=== PATIENT | female | born 1945 | race Caucasian/White ===

== ENCOUNTER 2019-05-09 13:05 | Outpatient (REF) | payer MEDICARE, SELFPAY ==
[2019-05-09 21:58] LABS: ALT 19 U/L (12-78); AST 28 U/L (15-37); Albumin 3.7 g/dL (3.4-5.0); Alkaline Phosphatase 84 U/L (46-116); Anion Gap 8.4 mmol/L (3-11); BUN 34 mg/dL (7-18); Bilirubin, Total 0.9 mg/dL (0.2-1.0); CO2 28.6 mmol/L (21.0-32.0); CREATININE 1.78 mg/dL (0.55-1.02); Calcium 9.9 mg/dL (8.5-10.1); Calculated LDL 126; Chloride 106 mmol/L (98-107); Cholesterol 208 mg/dL (50-200); Estimated GFR 27.71 (mL/min/1.73m2); Glucose 91 mg/dL (70-100); HDL Cholesterol 67 mg/dL (40-60); Potassium 4.8 mmol/L (3.5-5.1); Sodium 143 mmol/L (136-145); TSH (W/Ref FT4) 0.04 uIU/mL (0.358-3.74); Total Protein 7.3 g/dL (6.4-8.2); Triglyceride 75 mg/dL (30-150)
[2019-05-09 22:19] LABS: FREE T4 1.45 ng/dL (0.76-1.46)
[2019-05-13 10:56] LABS: CA 125 10 U/mL (0-30)
== END 2019-05-09 13:25 ==
LOC: NCHCN 13:05
PROVIDERS: PCP Nurse Practitioner Family; Visit Provider Family Medicine
DX: C54.1 Malignant neoplasm of endometrium (principal); E03.9 Hypothyroidism, unspecified; E78.00 Pure hypercholesterolemia, unspecified
CPT/HCPCS: 80053; 80061; 83721; 86304; 84439; 84443

== ENCOUNTER 2019-07-20 12:07 | Emergency (ER) | payer MEDICARE, MEDICAID, SELFPAY ==
[2019-07-20] VITALS (24 sets, daily range): BP systolic 114–158; BP diastolic 57–81; PULSE 52–84; RESP 12–23; O2SAT 97–100
[2019-07-20 12:56] LABS: Abs Immature Grans 0.01 k/cumm (0.0-0.09); Absolute Basophil Count 0.04 k/cumm (0.0-0.2); Absolute Eosinophil Count 0.11 k/cumm (0.0-0.7); Absolute Lymphocyte Count 1.34 k/cumm (1.2-3.4); Absolute Monocyte Count 0.41 k/cumm (0.11-0.7); Absolute Neutrophil Count 5.48 k/cumm (1.2-6.7); Basophils % 0.5; Eosinophils % 1.5; HCT 32.1 % (36.0-46.0); HGB 10.4 g/dL (12.0-15.5); Immature Grans % 0.1; Lymphocytes % 18.1; Mean Corp. HGB Concentration 32.4 g/dL (32.0-36.0); Mean Corpuscular Hemoglobin 30.8 pg (27.0-33.0); Mean Platelet Volume 9.6 fL (8.0-11.0); Monocytes % 5.5; Neutrophils % 74.3; Platelet Count 269 x1000/uL (130-400); RBC 3.38 m/cumm (4.00-5.20); RBC Distribution Width 11.6 % (11.7-14.6); White Blood Cell Count 7.39 k/cumm (4.4-10.8)
[2019-07-20] MEDS: Normal Saline 500 ML 1000 ML IV (13:01)
--- NOTE | 2019-07-20 13:01 | NUR.NOTE ---
iv placed 20 in rac labs drawn ivf infusing Nursing Note:
--- NOTE | 2019-07-20 13:10 | DI.RAD_ITS ---
SYMPTOMS/DIAGNOSIS: SYNCOPE PA AND LATERAL CHEST: There are no prior comparison exams. The heart size is normal. The lungs show mild fibrotic changes. There is a question of increased densities adjacent to the right heart border, which could represent atelectasis versus infiltrate. No effusions are seen. Degenerative changes are noted in the spine. IMPRESSION: Question of right middle lobe infiltrate versus atelectasis.
[2019-07-20 13:12] LABS: ALT 17 U/L (14-59); AST 17 U/L (15-37); Albumin 3.6 g/dL (3.4-5.0); Alkaline Phosphatase 80 U/L (46-116); Anion Gap 8.5 mmol/L (3-11); BUN 31 mg/dL (7-18); CO2 27.5 mmol/L (21.0-32.0); CREATININE 2.08 mg/dL (0.55-1.02); Calcium 9.6 mg/dL (8.5-10.1); Chloride 106 mmol/L (98-107); Estimated GFR 23.15 (mL/min/1.73m2); Glucose 119 mg/dL (70-100); Magnesium 1.7 mg/dL (1.8-2.4); Potassium 4.1 mmol/L (3.5-5.1); Sodium 142 mmol/L (136-145); Total Protein 7.9 g/dL (6.4-8.2)
[2019-07-20 13:13] LABS: Troponin I < 0.05 ng/mL (0.00-0.06)
[2019-07-20 13:38] LABS: D-Dimer 1329 ng/mlFEU (<500)
--- NOTE | 2019-07-20 14:03 | DI.VRAD_ITS ---
EXAM: XR Chest, 2 Views EXAM DATE/TIME: 07/20/2019 12:50 PM CLINICAL HISTORY: 74 years old, female; Other: Syncope TECHNIQUE: Imaging protocol: XR of the chest, 2 views. COMPARISON: No relevant prior studies available. FINDINGS: Lungs: Hyperaerated lungs consistent with mild to moderate COPD . Mild right medial basilar bronchopneumonia or atelectasis. Pleural space: Unremarkable. No pleural effusion. No pneumothorax. Heart/Mediastinum: Unremarkable. No cardiomegaly. Bones/joints: Mild thoracic spondylosis. IMPRESSION: 1. Hyperaerated lungs consistent with mild to moderate COPD . 2. Mild right medial basilar bronchopneumonia or atelectasis. Dictated and Authenticated by: Denton Pérez MD. Ordering:PHIL Barnes MD
--- NOTE | 2019-07-20 14:18 | ED.GENADUL_ITS ---
Discharge Plan Disposition Patient Disposition: AGAINST MEDICAL ADVICE Discharge Details Chief Complaint: AMS/LOC Clinical Impression: Bronchopneumonia, Syncope, D-dimer, elevated, Creatinine elevation Primary Care Provider: Palak Casas ED Provider: Cameron Werner Home Meds and New Rx's Prescriptions: New doxycycline hyclate 100 mg tablet 100 mg PO BID Qty: 13 RF: 0 Continued levothyroxine [Synthroid] 25 MCG tablet 25 mcg PO DAILY RF: 0 lisinopril 10 MG tablet 10 mg PO DAILY RF: 0 Discharge Instructions Instructions: Dehydration (ED), Syncope (ED), Against Medical Advice (ED), Pneumonia (ED) Additional Instructions: Please drink plenty of water to stay hydrated. Take antibiotic as prescribed. Please contact your primary care physician to arrange follow-up. Call to arrange timely follow-up next week. You are leaving AGAINST MEDICAL ADVICE. Return to the ER at any time for further diagnostic work-up and treatment as recommended. Referrals: Palak Casas [Primary Care Provider] - Medical Decision Making 74-year-old female presents with syncope. Has been coughing for few months. Saturating well no respiratory distress and hemodynamically stable. ECG was reviewed and interpreted by me: Sinus rhythm 62 bpm, normal axis, PACs noted. Screening labs were sent. Results reviewed. Patient is mildly anemic with hemoglobin of 10.4. Creatinine is elevated at 2.08 and this is an increase from prior. Estimated GFR is 23. Patient has mildly low magnesium of 1.7. D-dimer is elevated at 1329. Chest x-ray was reviewed and interpreted by radiology: IMPRESSION: 1. Hyperaerated lungs consistent with mild to moderate COPD . 2. Mild right medial basilar bronchopneumonia or atelectasis. Patient was administered IV fluid bolus 500 mL. All results were discussed with the patient. Plan to admit given syncope, pneumonia, JAYA. I had a discussion with the patient and family about my diagnostic/treatment plan. She declines plan and wishes to leave against medical advise. I reiterated my concerns to the patient and explained the risks of leaving prior to completion of workup and treatment. I specifically emphasized the possibility of life-threatening or lifestyle modifying disease that would not be appropriately treated if they leave. Patient verbalized understanding of my concerns and the potential for life threatening or lifestyle modifying disease. Patient has capacity to make informed decision. I again explained my concerns and urged the patient to stay for treatment as outlined. Patient continued to refuse. I then discussed potential less ideal alternatives to diagnostic/treatment plan as outlines and patient refused. I recommended that the patient follow-up with primary care physician EMERITA or return to the Emergency Department at any time for further treatment. Lab Data Lab results reviewed: Yes I reviewed the patient's lab results. HPI General Mode of arrival: ambulatory . Date/Time Provider Initiated Documentation: 07/20/19 12:28 . Limitations to Documentation: no limitations . Information obtained by: patient . HPI Narrative: 74-year-old female with history of hypertension, hypothyroidism, here at the prompting of her family after syncopal episode that occurred at jehovah's witness function. This occurred just prior to arrival today. EMS were called and patient refused EMS transport. History limited secondary to altered mental status during the episode. Patient notes she was feeling well this morning and suddenly during jehovah's witness function slumped over. Bystanders note her eyes remained open but she was unresponsive for a couple minutes. Patient then spontaneously improved. Patient denies any symptoms at this time and desires discharge. Related Data Home Medications Medication Instructions Recorded Confirmed levothyroxine [Synthroid] 25 mcg PO DAILY 11/29/15 07/20/19 lisinopril 10 mg PO DAILY 10/04/17 07/20/19 doxycycline hyclate 100 mg PO BID #13 tab 07/20/19 Previous Rx's Medication Instructions Recorded doxycycline hyclate 100 mg PO BID #13 tab 07/20/19 Allergies Allergy/AdvReac Type Severity Reaction Status Date / Time Penicillins Allergy Unverified 11/03/17 10:08 General Stated Complaint: AMS/LOC PAMELA: 3 Review of Systems Review of Systems All systems reviewed & are unremarkable except as noted in HPI and below Constitutional Denies fever(s) ENT Denies nasal congestion and Reports other (Rhinorrhea times months) Cardiovascular Denies chest pain, Reports syncope and Denies dyspnea Respiratory Reports cough and Denies dyspnea Neurologic Reports syncope PFSH Medical History HTN (hypertension) Hypothyroidism (acquired) Incontinence Neoplasm of endometrium Surgical History Colonoscopy - MAC (10/09/17) Vaginal hysterectomy Social History Smoking/Tobacco Use Status: Never Drug use: Never Do you feel safe at home: Yes Do you feel safe in your relationship?: Yes Exam Const General: cooperative and no acute distress [facility] Head: normocephalic Eyes Conjunctivae: normal conjunctivae Sclera: normal sclerae EOM: EOM intact bilaterally Neck Neck: trachea midline and supple Resp Auscultation: clear to auscultation bilaterally, no rales, no rhonchi and no wheezes Cardio Jugular venous pressure: no JVD Rate: regular rate and not tachycardic Rhythm: regular rhythm GI Palpation: soft, not firm, no guarding, no masses, not rigid and nontender Skin General skin exam: no rashes or lesions noted Neuro General: alert, awake, oriented x3 and tone normal Cognition: normal cognition Motor: muscle tone normal throughout and strength 5/5 throughout Sensory Exam: no sensory deficits noted Extrem General: no edema Psych Appearance: grossly normal Mental Status: mental status grossly normal Speech and Movement: speech and movement normal Course Vital Signs Pulse 74 07/20/19 12:15 Respiratory Rate 16 07/20/19 12:15 Blood Pressure 139/74 07/20/19 12:15 Pulse Oximetry 99 07/20/19 12:15 Pulse 74 07/20/19 12:15 Respiratory Rate 20 07/20/19 12:20 Respiratory Effort Non-Labored 07/20/19 12:20 Respiratory Depth Normal 07/20/19 12:20 Respiratory Pattern Normal 07/20/19 12:20 Blood Pressure 139/74 07/20/19 12:15 Blood Pressure Position Sitting 07/20/19 12:15 Pulse Oximetry 99 07/20/19 12:15 Oxygen Delivery Method Room Air 07/20/19 12:15 Oxygen Flow Rate 0 07/20/19 12:15 Lab/Test Results Lab/Test Results: Laboratory Tests Range/Units 07/20/19 07/20/19 07/20/19 12:50 12:50 12:50 WBC (4.4-10.8) k/cumm 7.39 RBC (4.00-5.20) m/cumm 3.38 L Hgb (12.0-15.5) g/dL 10.4 L Hct (36.0-46.0) % 32.1 L MCV (80-95) fL 95.0 MCH (27.0-33.0) pg 30.8 MCHC (32.0-36.0) g/dL 32.4 RDW (11.7-14.6) % 11.6 L Plt Count (130-400) x1000/uL 269 MPV (8.0-11.0) fL 9.6 Immature Gran % 0.1 Neutrophils % 74.3 Lymphocytes % 18.1 Monocytes % 5.5 Eosinophils % 1.5 Basophils % 0.5 Absolute Neutrophils (1.2-6.7) k/cumm 5.48 Absolute Lymphocytes (1.2-3.4) k/cumm 1.34 Absolute Monocytes (0.11-0.7) k/cumm 0.41 Absolute Eosinophils (0.0-0.7) k/cumm 0.11 Absolute Basophils (0.0-0.2) k/cumm 0.04 D-Dimer (<500) ng/mlFEU 1329 H Sodium (136-145) mmol/L 142 Potassium (3.5-5.1) mmol/L 4.1 Chloride (98-107) mmol/L 106 Carbon Dioxide (21.0-32.0) mmol/L 27.5 Anion Gap (3-11) mmol/L 8.5 BUN (7-18) mg/dL 31 H Creatinine (0.55-1.02) mg/dL 2.08 H Estimated GFR/1.73 m2 (mL/min/1.73m2) 23.15 Glucose (70-100) mg/dL 119 H Calcium (8.5-10.1) mg/dL 9.6 Magnesium (1.8-2.4) mg/dL 1.7 L Total Bilirubin (0.2-1.0) mg/dL 1.0 AST (15-37) U/L 17 ALT (14-59) U/L 17 Alkaline Phosphatase (46-116) U/L 80 Troponin I (0.00-0.06) ng/mL < 0.05 Total Protein (6.4-8.2) g/dL 7.9 Albumin (3.4-5.0) g/dL 3.6
[2019-07-20] MEDS: Doxycycline Hyclate 100 MG CAP PO (14:30)
== END 2019-07-20 14:43 | disposition left against medical advice (07) ==
PROVIDERS: Emergency Provider Student in an Organized Health Care Education/Training Program; PCP Nurse Practitioner Family
DX: R55 Syncope and collapse (principal); J18.0 Bronchopneumonia, unspecified organism; R79.1 Abnormal coagulation profile; R94.4 Abnormal results of kidney function studies; D64.9 Anemia, unspecified; I10 Essential (primary) hypertension; E83.42 Hypomagnesemia; Z53.29 Procedure and treatment not carried out because of patient's decision for other reasons
CPT/HCPCS: 80053; 93005; 96360; 99285; 71046; 83735; 84484; 85025; 85379; 93010

== ENCOUNTER 2020-01-19 09:39 | Emergency (ER) | payer MEDICARE, MEDICAID, SELFPAY ==
[2020-01-19 09:53] VITALS: BP 150/60; PULSE 60; RESP 18; O2SAT 98
--- NOTE | 2020-01-19 10:35 | DI.RAD_ITS ---
EXAM: XR HIP RT COMPLETE AP PELVIS INDICATION: Fall, pain, question inferior pubic rami fracture. TECHNIQUE: 2D digital imaging was performed. FINDINGS: A right hip prosthesis is again noted. There is no evidence of fracture or dislocation. Degenerativ e changes are prominent at the sacroiliac joints. Vascular calcifications are seen. IMPRESSION: No acute abnormality. DATA REPOSITORY: RADIATION DOSE DELIVERED:
--- NOTE | 2020-01-19 11:01 | ED.GENADUL_ITS ---
Discharge Plan Disposition Patient Disposition: HOME Condition: Stable Discharge Details Chief Complaint: Orthopedic Clinical Impression: Hip pain Primary Care Provider: Palak Casas ED Provider: Ronald Jacobson Home Meds and New Rx's Prescriptions: Continued levothyroxine [Synthroid] 25 MCG tablet 25 mcg PO DAILY RF: 0 lisinopril 10 MG tablet 10 mg PO DAILY RF: 0 Discharge Instructions Instructions: Hip Pain (ED) Additional Instructions: X-ray does not reveal any fracture and you are able to ambulate steadily without pain using your walker. I recommend using a walker at home and not using the cane. Please watch for new or worsening symptoms and return to the ER for any concerns. Gentle stretching as tolerated. Cool and/or warm compresses every 2 hours for 20 minutes. I recommend reaching out to your primary care provider tomorrow for outpatient reevaluation and to discuss physical therapy if symptoms persist Medical Decision Making 74-year-old female with a history of hypertension and thyroid disease presents having fallen on the or of last month injuring her right hip. She has been ambulatory using her cane but because the pain is not improving she is concerned she may have injured her previous surgery. She has full range of motion, there is no bony point tenderness, shortening or rotation. When she lies on her left side and attempts to abduct her legs she has increased pain. Given the injury is at least 10 days old, she is weightbearing, no deformity, no point tenderness, low suspicion for acute bony abnormality. She reports that she did strike her head but there was no loss of consciousness, she is neurologically intact now, no clear indication for CT imaging of her head 10 days after the injury. Will obtain x-ray of her right hip and pelvis and reassess. X-ray unremarkable. Discussed findings with patient and family. We discussed her safety at home and other options. She was trial ambulated using a walker throughout the ER, able to ambulate steadily without any pain. Patient is relieved that there is no fracture. Given she is weightbearing without difficulty, no clear indication to now CT her pelvis and hip. Family and patient both feel as though she is safe to go home at her current status. She does have a walker at home for both upstairs and downstairs that she will begin using, she will stop using the cane. Medical Records Medical records reviewed: Yes I reviewed the patient's medical records. Imaging Data Radiologic Study: Imaging: X-Ray (Right hip and pelvis x-ray read by virtual radiology as negative) HPI General Mode of arrival: ambulatory . Date/Time Provider Initiated Documentation: 01/19/20 09:45 . Limitations to Documentation: no limitations . Information obtained by: patient and family . HPI Narrative: This is a 74-year-old female who presents with her son for evaluation of right hip pain. She does have a past medical history of thyroid disease and hypertension. She reports that she fell in the kitchen either on the or of last month. She cannot give me the exact details of how or why she fell, however she knows that she had not eaten yet, denies loss of consciousness, and assumes that she simply slipped. She states that she fell onto her right side, she did hit her head, but again no LOC. She denies any headache, neck pain, visual changes, upper extremity discomfort, trunk discomfort, chest pain, shortness of breath, abdominal pain, problems with bowel or bladder function. She reports that she is able to bear weight but with certain types of movements she has right groin- hip discomfort. She reports this pain feels differently than when she broke her hip requiring a hip replacement. Denies any numbness, tingling, weakness in that extremity. She does live at home alone, has multiple levels in her home, and typically uses a cane for ambulation although she does have 2 walkers at home that she chooses not to use. She reports that the pain is simply not improving, she is concerned about her previous hip replacement, so she came to the ER for further evaluation. Related Data Home Medications Medication Instructions Recorded Confirmed levothyroxine [Synthroid] 25 mcg PO DAILY 11/29/15 01/19/20 lisinopril 10 mg PO DAILY 10/04/17 01/19/20 Allergies Allergy/AdvReac Type Severity Reaction Status Date / Time Penicillins Allergy Unverified 11/03/17 10:08 General Stated Complaint: Orthopedic PAMELA: 3 Review of Systems Constitutional Constitutional: Denies fever(s) and Denies headache(s) Eyes Eyes: Denies change in vision ENT Ears, Nose, Mouth, and Throat: Denies headache(s) Cardiovascular Cardiovascular: Denies chest pain and Denies dyspnea Respiratory Respiratory: Denies dyspnea Gastrointestinal Gastrointestinal: Denies abdominal pain, Denies nausea and Denies vomiting Genitourinary Genitourinary: Denies dysuria Musculoskeletal Musculoskeletal: Denies back pain and Denies tingling Integumentary/Breasts Skin/Breast: Denies rash Neurologic Neurologic: Denies headache(s) and Denies tingling PFSH Medical History HTN (hypertension) Hypothyroidism (acquired) Incontinence Neoplasm of endometrium Surgical History Colonoscopy - MAC (10/09/17) Vaginal hysterectomy Social History Smoking/Tobacco Use Status: Never Alcohol Intake: never Drug use: Never Substance use type: does not use Do you feel safe at home: Yes Do you feel safe in your relationship?: Yes Exam Const General: cooperative, healthy appearing, comfortable and no acute distress Orientation: alert and awake HENMT Head: normal to inspection, normocephalic and atraumatic Mouth: moist mucous membranes Eyes Conjunctivae: conjunctivae normal Neck Neck: normal visual inspection, full ROM, trachea midline and supple Resp Effort & Inspection: normal respiratory effort and able to speak in complete sentences Auscultation: clear to auscultation bilaterally Cardio Rate: regular rate Rhythm: regular rhythm GI Palpation: soft, no guarding, not rigid and nontender Back/Spine/Pelvis Cervical Spine: No cervical spinal tenderness Thoracic/Lumbar Spine: No thoracic spinal tenderness and No lumbar spinal tenderness Skin General skin exam: no rashes or lesions noted Neuro General: alert, awake, oriented x3, moves all extremities and no focal motor deficits Cranial Nerves: CN's II-XI intact bilaterally Gait: normal gait Motor: muscle tone normal throughout and strength 5/5 throughout Sensory Exam: no sensory deficits noted Extrem Right upper extremity: normal to inspection Left upper extremity: normal to inspection Right lower extremity: normal to inspection, full ROM, normal capillary refill and hip/thigh Details: normal to inspection, tenderness (There is mild right groin discomfort. Without erythema, ecchymosis or point tenderness), normal ROM, abnormal ROM and other (No shortening or rotation); no ecchymosis, no crepitus and no deformity; no cyanosis and no edema Left lower extremity: normal to inspection, full ROM and normal capillary refill; no cyanosis and no edema Psych Appearance: grossly normal Mental Status: mental status grossly normal Course Vital Signs Vital signs: Vital Signs Pulse 60 01/19/20 09:53 Respiratory Rate 18 01/19/20 09:53 Blood Pressure 150/60 H 01/19/20 09:53 Pulse Oximetry 98 01/19/20 09:53 Pulse 60 01/19/20 09:53 Respiratory Rate 18 01/19/20 09:53 Respiratory Effort Non-Labored 01/19/20 09:58 Blood Pressure 150/60 H 01/19/20 09:53 Blood Pressure Position Sitting 01/19/20 09:53 Pulse Oximetry 98 01/19/20 09:53 Oxygen Delivery Method Room Air 01/19/20 09:53 Oxygen Flow Rate 0 01/19/20 09:53 Pain Level 10 01/19/20 09:53
--- NOTE | 2020-01-19 11:17 | DI.VRAD_ITS ---
PROCEDURE INFORMATION: Exam: XR Right Hip with Pelvis when Performed Exam date and time: 01/19/2020 10:27 AM Age: 74 years old Clinical indication: Pain and injury or trauma; Fall; Initial encounter; Blunt trauma (contusions or hematomas); Hip pain; Right hip; Prior surgery TECHNIQUE: Imaging protocol: XR Right hip with pelvis when performed. Views: 2 or 3 views. COMPARISON: No relevant prior studies available. FINDINGS: Bones/joints: Right total hip replacement. There is no evidence of acute fracture.There is no evidence of malalignment or dislocation. Degenerative changes in the sacroiliac joints Soft tissues: Unremarkable. Vasculature: Phleboliths in the pelvis IMPRESSION: 1. Right total hip replacement. 2. There is no evidence of acute fracture.There is no evidence of malalignment or dislocation. Dictated and Authenticated by: Tim Stevens MD. Ordering:TOMAS Cardenas MD
[2020-01-19 11:41] VITALS: BP 150/60; PULSE 60; RESP 18; O2SAT 98
== END 2020-01-19 11:41 | disposition home or self-care (01) ==
PROVIDERS: Emergency Provider Physician Assistant; PCP Nurse Practitioner Family
DX: M25.551 Pain in right hip (principal); W19.XXXA Unspecified fall, initial encounter; I10 Essential (primary) hypertension
CPT/HCPCS: 99283; 73502

== ENCOUNTER 2020-05-12 12:39 | Outpatient (REF) | payer MEDICARE, MEDICAID, SELFPAY ==
[2020-05-12 20:53] LABS: Anion Gap 10.4 mmol/L (3-11); BUN 35 mg/dL (7-18); CO2 26.6 mmol/L (21.0-32.0); CREATININE 2.36 mg/dL (0.55-1.02); Calcium 9.5 mg/dL (8.5-10.1); Chloride 105 mmol/L (98-107); Estimated GFR 19.96 (mL/min/1.73m2); Glucose 106 mg/dL (74-106); Potassium 4.3 mmol/L (3.5-5.1); Sodium 142 mmol/L (136-145); TSH 0.01 uIU/mL (0.36-3.74); Vitamin B12 406 pg/mL (193-986)
== END 2020-05-12 12:59 ==
LOC: NCHCN 12:39
PROVIDERS: PCP Nurse Practitioner Family; Visit Provider Physician Assistant
DX: E03.9 Hypothyroidism, unspecified (principal); R41.3 Other amnesia
CPT/HCPCS: 80048; 82607; 84443

== ENCOUNTER 2020-10-27 08:26 | Emergency (ER) | payer MEDICARE, MEDICAID, SELFPAY ==
--- NOTE | 2020-10-27 08:30 | ED.GENADUL_ITS ---
Discharge Plan Disposition Patient Disposition: HOME Condition: Stable Discharge Details Clinical Impression: Left knee pain Primary Care Provider: Palak Casas ED Provider: Kathy Ruiz Home Meds and New Rx's Prescriptions: Continued levothyroxine [Synthroid] 25 MCG tablet 25 mcg PO DAILY RF: 0 lisinopril 10 MG tablet 10 mg PO DAILY RF: 0 Discharge Instructions Instructions: Osteoarthritis (ED), Knee Pain (ED) Additional Instructions: Your knee pain is most likely due to arthritis. You were given instructions for more information about arthritis. Take 500 mg of ibuprofen every 4 hours and if no relief, you can occasionally take 600 mg of ibuprofen every 4 hours as needed for pain. Alternate ice and heat to the affected area(s) several times daily for 20 minutes at a time. Follow-up with your primary care doctor in 1 week. Return to the emergency department with any worsening or new concerning symptoms. Discharge Data Discharge Physician: Kathy Ruiz Medical Decision Making 75-year-old female with a history of hypertension, hypothyroidism presents for left knee pain that occurs with weightbearing or flexion for the past 2 weeks. Patient appears nontoxic. She has reproducible left knee pain that occurs with weightbearing and full flexion. She has no pain in her left hip or ankle. There is no evidence of trauma, cellulitis or rash. She is neurovascularly intact. There is no ligamentous laxity. There is no left calf tenderness. Her right lower extremity has minimal nonpitting edema in relation to the left lower extremity but she has no right leg pain or injury. Suspect most likely arthritis. Patient was offered an x-ray but declined. As she has not been taking medication for pain, will give a dose of Tylenol here and she is advised to take Tylenol every 4 hours for pain. She is also advised on the risks of long-term ibuprofen but that she can take it occasionally if she does not have relief with Tylenol. She also was advised to alternate ice and heat. She is advised on moderate exercise to help with flexibility but not during this current acute episode. Advised to follow up with the primary care doctor for re-evaluation. Usual and customary return precautions given prior to discharge. Medical Records Medical records reviewed: Yes I reviewed the patient's medical records. HPI General Mode of arrival: ambulatory . Date/Time Provider Initiated Documentation: 10/27/20 08:30 . Limitations to Documentation: no limitations . Information obtained by: patient . HPI Narrative: Patient is a 75-year-old female with a history of hypertension, hypothyroidism who presents for left knee pain for the past 2 weeks. She states the pain only occurs with weightbearing and bending at her knee. She states she chronically uses a cane or a walker to help with balance issues while walking at home for the past several years. She took an aspirin recently but otherwise she has not taken any Tylenol or Motrin or any other pain medication for her symptoms. She denies any injury, fall, fever, leg swelling, calf pain, hip pain, ankle pain, swelling in her leg, recent travel, recent surgery. She denies any right leg pain. She states she thinks her symptoms are due to arthritis but she wanted to come here for further evaluation. Related Data Home Medications Medication Instructions Recorded Confirmed levothyroxine [Synthroid] 25 mcg PO DAILY 11/29/15 10/27/20 lisinopril 10 mg PO DAILY 10/04/17 10/27/20 Allergies Allergy/AdvReac Type Severity Reaction Status Date / Time Penicillins Allergy Unverified 11/03/17 10:08 General PAMELA: 3 Review of Systems All systems reviewed & are unremarkable except as noted in HPI and below Constitutional Constitutional: Reports as per HPI, Denies chills and Denies fever(s) Eyes Eyes: Denies blurry vision ENT Ears, Nose, Mouth, and Throat: Denies dizziness, Denies sore throat and Denies throat swelling Cardiovascular Cardiovascular: Denies chest pain and Denies dyspnea Respiratory Respiratory: Denies cough and Denies dyspnea Gastrointestinal Gastrointestinal: Denies abdominal pain, Denies diarrhea and Denies vomiting Genitourinary Genitourinary: Denies hematuria and Denies dysuria Musculoskeletal Musculoskeletal: Denies back pain, Denies numbness and Reports other (L knee pain) Integumentary/Breasts Skin/Breast: Denies lesions and Denies rash Neurologic Neurologic: Denies dizziness, Denies localized weakness and Denies numbness Allergic/Immunologic Allergic/Immunologic: Denies throat swelling [facility] Medical History (Updated 10/27/20 @ 09:31 by Kathy Ruiz DO) HTN (hypertension) Hypothyroidism (acquired) Incontinence Neoplasm of endometrium Surgical History Colonoscopy - MAC (10/09/17) Vaginal hysterectomy Social History Smoking/Tobacco Use Status: Never Smoking risk assessment performed?: Yes Alcohol Intake: never Drug use: Never Substance use type: does not use Do you feel safe at home: Yes Do you feel safe in your relationship?: Yes Exam Const General: cooperative, healthy appearing and no acute distress HENMT Head: normal to inspection Mouth: oral mucosae normal Eyes General: appearance normal, both eyes and all related structures Neck Neck: normal visual inspection Resp Effort & Inspection: normal respiratory effort and able to speak in complete sentences Cardio Rate: regular rate Skin General skin exam: no rashes or lesions noted Neuro General: patient alert, patient awake and patient oriented x3 Motor: muscle tone normal throughout Extrem Other: Left lower extremity: No tenderness to palpation of L hip/knee/leg/connor or foot. Pain in knee with weight bearing and full flexion. There is crepitus in knee with flexion. No pain with range of motion at hip or ankle. There is no edema, ecchymosis, erythema. No calf tenderness. Left DP and PT pulses intact. Right lower extremity: No pain with range of motion, erythema, ecchymosis. There is minimal nonpitting edema in right leg in comparison to left leg. There is no pain in right leg. Psych Appearance: grossly normal Affect: normal affect
[2020-10-27 08:56] VITALS: BP 146/63; PULSE 61; RESP 16; TEMP 36.6; O2SAT 99
[2020-10-27 09:35] VITALS: BP 133/62; PULSE 62; RESP 18; TEMP 37; O2SAT 99
[2020-10-27] MEDS: Acetaminophen 325 MG TAB 650 MG PO (09:35)
[2020-10-27 09:45] VITALS: TEMP 37
== END 2020-10-27 09:40 | disposition home or self-care (01) ==
PROVIDERS: Emergency Provider Physician Assistant; PCP Nurse Practitioner Family
DX: M25.562 Pain in left knee (principal); I10 Essential (primary) hypertension
CPT/HCPCS: 99282; 99283

== ENCOUNTER 2021-09-08 09:38 | Outpatient (REF) | payer MEDICARE, MEDICAID, SELFPAY ==
[2021-09-08 22:33] LABS: ALT 14 U/L (14-59); AST 15 U/L (15-37); Albumin 3.9 g/dL (3.4-5.0); Alkaline Phosphatase 105 U/L (46-116); Anion Gap 10.4 mmol/L (3-11); BUN 16 mg/dL (7-18); Bilirubin, Total 1.4 mg/dL (0.2-1.0); CO2 25.6 mmol/L (21.0-32.0); CREATININE 1.7 mg/dL (0.55-1.02); Calcium 9.9 mg/dL (8.5-10.1); Calculated LDL 130 mg/dL (<100); Chloride 105 mmol/L (98-107); Cholesterol 234 mg/dL (<200); Estimated GFR 29.07 (mL/min/1.73m2); Glucose 94 mg/dL (74-106); HDL Cholesterol 84 mg/dL (40-60); Potassium 4.2 mmol/L (3.5-5.1); Sodium 141 mmol/L (136-145); TSH (W/Ref FT4) 0.01 uIU/mL (0.36-3.74); Total Protein 7.8 g/dL (6.4-8.2); Triglyceride 103 mg/dL (<150)
[2021-09-08 22:50] LABS: FREE T4 1.86 ng/dL (0.76-1.46)
== END 2021-09-08 09:39 | disposition home or self-care (01) ==
LOC: NCHCN 09:38
PROVIDERS: PCP Nurse Practitioner Family; Visit Provider Family Medicine
DX: E78.00 Pure hypercholesterolemia, unspecified (principal); E03.9 Hypothyroidism, unspecified; I10 Essential (primary) hypertension; N18.9 Chronic kidney disease, unspecified; E66.3 Overweight
CPT/HCPCS: 80053; 80061; 84439; 84443

== ENCOUNTER 2022-06-17 19:40 | Outpatient (REF) | payer MEDICARE, MEDICAID, SELFPAY ==
[2022-06-17 16:07] LABS: HCT 37.6 % (36.0-46.0); MCH 29.7 pg (27.0-33.0); MCHC 31.9 % (32.0-36.0); MCV 93 fL (80-95); MPV 9.7 fL (8.0-11.0); Platelet Count 310 10^3/uL (130-400); RBC 4.04 10^6/uL (3.93-5.22); RDW 11.9 % (11.7-14.6); RDW-SD 41.3 fL; WBC 7.47 10^3/uL (4.4-10.8)
[2022-06-17 16:36] LABS: ALT 13 U/L (14-59); AST 15 U/L (15-37); Albumin 3.9 g/dL (3.4-5.0); Alkaline Phosphatase 87 U/L (46-116); Anion Gap 11.4 mmol/L (3-11); BUN 18 mg/dL (7-18); Bilirubin, Total 0.8 mg/dL (0.2-1.0); CO2 24.6 mmol/L (21.0-32.0); CREATININE 1.7 mg/dL (0.55-1.02); Calcium 9.5 mg/dL (8.5-10.1); Chloride 104 mmol/L (98-107); Estimated GFR 28.99 (mL/min/1.73m2); Glucose 93 mg/dL (74-106); Potassium 4.4 mmol/L (3.5-5.1); Sodium 140 mmol/L (136-145); TSH (W/Ref FT4) 0.02 uIU/mL (0.36-3.74); Total Protein 7.7 g/dL (6.4-8.2)
[2022-06-17 16:56] LABS: FREE T4 1.37 ng/dL (0.76-1.46)
== END 2022-06-17 19:41 | disposition home or self-care (01) ==
LOC: NCHCN 19:40
PROVIDERS: PCP Nurse Practitioner Family; Visit Provider Family Medicine
DX: E03.9 Hypothyroidism, unspecified (principal); I10 Essential (primary) hypertension
CPT/HCPCS: 80053; 85027; 84439; 84443

== ENCOUNTER 2022-10-18 15:27 | Inpatient (IN) | payer MEDICARE, MEDICAID, SELFPAY ==
[2022-10-18] VITALS (25 sets, daily range): BP systolic 130–152; BP diastolic 57–126; PULSE 88–110; RESP 12–24; TEMP 36.7–37.6; O2SAT 95–99
--- NOTE | 2022-10-18 15:15 | RT.EKG_ITS ---
APPROVED REPORT Exam: Resting ECG Reason for Exam: SVT Patient Location: E HR:97 bpm ECG Measurements Heart Rate 97 AXIS FL 151 P 48 QRSd 80 QRS -9 QT 360 T 79 QTc 457 Conclusion Sinus rhythm...normal P axis, V-rate 60- 99 Physician: no stemi
[2022-10-18] MEDS: Normal Saline 1,000 ML 1000 ML IV (15:48)
[2022-10-18 15:50] LABS: Abs Immature Grans 0.12 10^3/uL (0.0-0.06); Absolute Basophil Count 0.02 10^3/uL (0.0-0.2); Absolute Lymphocyte Count 1.01 10^3/uL (1.2-3.4); Basophils % 0.1; HCT 37.1 % (36.0-46.0); Immature Grans % 0.7; Lymphocytes % 5.5; MCH 29.8 pg (27.0-33.0); MCHC 32.3 % (32.0-36.0); MCV 92 fL (80-95); MPV 9.7 fL (8.0-11.0); Monocytes % 4.9; Neutrophils % 88.8; Platelet Count 317 10^3/uL (130-400); RBC 4.03 10^6/uL (3.93-5.22); RDW 12.2 % (11.7-14.6); RDW-SD 41.1 fL; WBC 18.45 10^3/uL (4.4-10.8)
[2022-10-18 15:51] LABS: Absolute Neutrophil Count 16.38 10^3/uL (1.2-6.7)
[2022-10-18 16:10] LABS: Bilirubin Small (Negative); Blood Moderate (Negative); Clarity Clear (Clear); Glucose Negative (Negative); Ketones 15 mg/dL (Negative); Leukocyte Esterase Negative (Negative); Nitrite Negative (Negative); Specific Gravity >= 1.030 (1.005-1.025); Urobilinogen 0.2 EU/dL (Up TO 0.2); pH 5.5 (5-8)
[2022-10-18 16:13] LABS: ALT 48 U/L (14-59); AST 157 U/L (15-37); Albumin 3.6 g/dL (3.4-5.0); Alkaline Phosphatase 88 U/L (46-116); Anion Gap 14.6 mmol/L (3-11); BUN 62 mg/dL (7-18); Bilirubin, Total 1.8 mg/dL (0.2-1.0); CO2 19.4 mmol/L (21.0-32.0); CREATININE 3.4 mg/dL (0.55-1.02); Calcium 9.5 mg/dL (8.5-10.1); Chloride 103 mmol/L (98-107); Creatine Kinase 2262 U/L (26-192); Glucose 96 mg/dL (74-106); Potassium 5.2 mmol/L (3.5-5.1); Sodium 137 mmol/L (136-145); TSH (W/Ref FT4) 0.03 uIU/mL (0.36-3.74); Troponin I 58 ng/L (<or=60)
[2022-10-18 16:17] LABS: Bacteria Negative HPF (Negative); Epithelial Cells Few HPF (Negative); WBC Negative HPF (0-5)
[2022-10-18 16:18] LABS: C & S Indicated? No; Casts 3-5 Hyaline LPF (Negative); Crystals Few Amorphous HPF (Negative); Mucus Negative (Negative)
--- NOTE | 2022-10-18 16:35 | DI.CT_ITS ---
Exam(s) CT HEAD CERVICAL SPINE WO EXAM: CT HEAD CERVICAL SPINE WO CLINICAL HISTORY: fall. TECHNIQUE: Imaging Protocol: Axial computed tomography images with coronal and sagittal reformatted images were created and reviewed COMPARISON: No exams were available for comparison FINDINGS: BRAIN: There are no skull fractures nor fluid in the visualized paranasal sinuses. There is no evidence of intracranial hemorrhage, mass effect, or shift of midline structures. There are no extra-axial fluid collections. The ventricles are not enlarged or shifted and there is no blo od within the ventricular system nor within the basal cisterns. Calcification of both vertebral arteries at the skull base noted, this in addition to calcification o f the internal carotid arteries at the skull base. CERVICAL SPINE: There is no evidence of fracture nor listhesis. No significant prevertebral soft tissue swelling. There is multilevel moderate disc space narrowing. There is no significant facet joint malalignment. No significant osseous lesions evident. IMPRESSION: No acute intracranial findings on this noninfused CT scan of the brain. No evidence of cervical spine fracture, malalignment, nor acute compromise of the cervical spinal can al. RADIATION DOSE DELIVERED: 1,123.89mGy.cm Total DLP DATA REPOSITORY: All CT scans at this facility are submitted to the National Radiology Data Registry (NRDR) Dose Index Registry (DIR) with the [employer] (ACR). RADIATION OPTIMIZATION: All CT scans at this facility use at least one of these dose optimization te chniques: automated exposure control; mA and/or kV adjustment per patient size (includes targeted exa ms where dose is matched to clinical indication); or iterative reconstruction.
--- NOTE | 2022-10-18 16:36 | W.ED.GENAD ---
Discharge Plan Disposition Patient Disposition: Admit to [facility] Condition: Stable Discharge Details Chief Complaint: AMS/LOC Clinical Impression: Acute kidney injury (nontraumatic), Rhabdomyolysis Admit Date/Time: 10/18/22 16:36 Admit Provider: Ronald Hsu Attending Provider: Ronald Hsu Primary Care Provider: Palak Casas ED Provider: Chao Nogueira Discharge Data Discharge Date/Time-TO BE ENTERED AT DEPARTURE: 10/18/22 17:26 Medical Decision Making This is a 77-year-old female with a past medical history of thyroid dysfunction, hypertension, currently on Bactrim, who presents today for evaluation of fall and weakness. Patient states that she laid herself down on the ground this morning/last evening, and was unable to get up all night or day long. Eventually patient pressed her medical alert, EMS was called, she was brought to the ER. She has complaints of soreness in her back from being on her back all night long, and she feels dehydrated, but no other complaints at this time. No other modifying factors. She denies hitting her head. She is not on blood thinners. No other complaints at this time Exam demonstrates well-appearing female, dry mucous membranes, no signs of significant trauma. No intracranial/head pain, she does have soreness on her back and buttock, however no focal tenderness, no spinal tenderness, no evidence of significant lesions or bruising. Differential was highest for dehydration, laboratory work-up was performed and the patient demonstrates evidence of rhabdomyolysis. Acute kidney injury is also noted. Patient is on potentially renal toxic medications in her current combination. We will rehydrate, monitor closely and reassess. Patient will be admitted to the floor. Discussed the case with the hospitalist. I have extensively reviewed the treatment plan with the patient. I have addressed all patient concerns at this time. I have also discussed the plan with the admitting physician and they agree with the current assessment and plan and have agreed to assume responsibility for the patient. All parties demonstrate verbal understanding and agreement with our assessment and plan at this time. The documentation in this chart was dictated using [employer] dictation software. Please excuse any dictation errors. Sign Out No HPI General Date/Time Provider Initiated Documentation: 10/18/22 15:29. HPI Narrative: This is a 77-year-old female with a past medical history of thyroid dysfunction, hypertension, currently on Bactrim, who presents today for evaluation of fall and weakness. Patient states that she laid herself down on the ground this morning/last evening, and was unable to get up all night or day long. Eventually patient pressed her medical alert, EMS was called, she was brought to the ER. She has complaints of soreness in her back from being on her back all night long, and she feels dehydrated, but no other complaints at this time. No other modifying factors. She denies hitting her head. She is not on blood thinners. No other complaints at this time Related Data Home Medications Medication Instructions Recorded Confirmed levothyroxine 25 mcg tablet 25 mcg PO DAILY 11/29/15 10/18/22 (Synthroid) lisinopril 10 mg tablet 10 mg PO DAILY 10/04/17 10/18/22 Allergies Allergy/AdvReac Type Severity Reaction Status Date / Time Penicillins Allergy Unverified 10/18/22 17:19 General Stated Complaint: AMS/LOC PAMELA: 3 Review of Systems All systems reviewed & are unremarkable except as noted in HPI and below PFSH All Active Problems (Updated 10/20/22 @ 09:02 by Chao Nogueira DO) Discharge planning issues (Acute) Chronic kidney disease (Chronic) Acute kidney injury (nontraumatic) (Acute) Rhabdomyolysis (Acute) Medical History (Updated 10/20/22 @ 09:02 by Chao Nogueira DO) HTN (hypertension) Hypothyroidism (acquired) Incontinence Neoplasm of endometrium Surgical History Colonoscopy - MAC (10/09/17) Vaginal hysterectomy Social History Smoking/Tobacco Use Status: Never Smoking risk assessment performed?: Yes Alcohol Intake: never Drug use: Never Substance use type: does not use Do you feel safe at home: Yes Do you feel safe in your relationship?: Yes Exam Narrative Exam Narrative: 1.Const: Well-nourished, Well-developed, appearing stated age 2.Eyes: PERRL, no conjunctival injection, and symmetrical lids. 3.ENT: Atraumatic external nose and ears. dry MM. Neck: Symmetric, trachea midline, No thyromegaly. There is no evidence of raccoon eyes, villalpando sign, CSF rhinorrhea, mastoid tenderness, cranial crepitus, hemotympanum, exophthalmos, or hyphema. Patient demonstrates intact dentition with no signs of tooth avulsion or fracture, no signs of jaw deformity, no evidence of a LeFort's fracture, with an intact palate, nose and orbital region. There is no evidence of a nasal septal hematoma. No proptosis. Jaw closes symmetrically. Airway is clear. 4.CVS: +S1/S2, No murmurs or gallops. Peripheral pulses 2+ and equal in all extremities. Brisk capillary refill in all extremities. 5.RESP: Unlabored respiratory effort. Clear to auscultation bilaterally. No wheezes rales or rhonchi 6.GI: Soft, Nontender/Nondistended, No hepatosplenomegaly. No guarding or rebound. 7.MSK: Normocephalic/Atraumatic, Extremities w/o deformity or ttp No cyanosis or clubbing, Normal movement of all extremities. No cervical thoracic or midline spinal tenderness. No evidence of lesion on the back or buttock on my evaluation. 8.Skin: Warm, Dry. No rashes or lesions. 9.Neuro: hospice care consultant II-XII grossly intact. Sensation grossly intact, no focal neurologic deficits. 10.Psych: (AAO) x3. Appropriate mood and affect Course Vital Signs Vital signs: Vital Signs Temperature 36.9 C 10/18/22 15:27 Pulse 94 H 10/18/22 15:27 Respiratory Rate 20 10/18/22 15:27 Blood Pressure 136/117 H 10/18/22 15:27 Pulse Oximetry 95 10/18/22 15:27 Temperature 36.9 C 10/18/22 15:27 Temperature Source Temporal Artery Scan 10/18/22 15:27 Pulse 94 H 10/18/22 15:27 Respiratory Rate 20 10/18/22 15:27 Blood Pressure 136/117 H 10/18/22 15:27 Blood Pressure Position Sitting 10/18/22 15:27 Pulse Oximetry 95 10/18/22 15:27 Oxygen Delivery Method Room Air 10/18/22 15:27 Oxygen Flow Rate 0 10/18/22 15:27 Lab/Test Results Lab/Test Results: Laboratory Tests Range/Units 10/18/22 10/18/22 10/18/22 15:40 15:40 16:04 WBC (4.4-10.8) 10^3/uL 18.45 H RBC (3.93-5.22) 10^6/uL 4.03 Hgb (11.2-15.7) g/dL 12.0 Hct (36.0-46.0) % 37.1 MCV (80-95) fL 92 MCH (27.0-33.0) pg 29.8 MCHC (32.0-36.0) % 32.3 RDW (11.7-14.6) % 12.2 Plt Count (130-400) 10^3/uL 317 MPV (8.0-11.0) fL 9.7 Immature Gran % 0.7 Neutrophils % 88.8 Lymphocytes % 5.5 Monocytes % 4.9 Eosinophils % 0.0 Basophils % 0.1 Nucleated RBC % (0.0-0.3) % 0.0 Absolute Neutrophils (1.2-6.7) 10^3/uL 16.38 H Absolute Lymphocytes (1.2-3.4) 10^3/uL 1.01 L Absolute Monocytes (0.1-0.8) 10^3/uL 0.90 H Absolute Eosinophils (0.0-0.7) 10^3/uL 0.00 Absolute Basophils (0.0-0.2) 10^3/uL 0.02 Sodium (136-145) mmol/L 137 Potassium (3.5-5.1) mmol/L 5.2 H Chloride (98-107) mmol/L 103 Carbon Dioxide (21.0-32.0) mmol/L 19.4 L Anion Gap (3-11) mmol/L 14.6 H BUN (7-18) mg/dL 62 H Creatinine (0.55-1.02) mg/dL 3.4 H Est GFR (CKD-EPI 2020) (mL/min/1.73m2) 13.20 Glucose (74-106) mg/dL 96 Calcium (8.5-10.1) mg/dL 9.5 Total Bilirubin (0.2-1.0) mg/dL 1.8 H AST (15-37) U/L 157 H ALT (14-59) U/L 48 Alkaline Phosphatase (46-116) U/L 88 Creatine Kinase (26-192) U/L 2262 H Troponin I (<or=60) ng/L 58 Total Protein (6.4-8.2) g/dL 8.0 Albumin (3.4-5.0) g/dL 3.6 TSH (0.36-3.74) uIU/mL 0.03 L Urine Color (Yellow) Yellow Urine Clarity (Clear) Clear Urine pH (5-8) 5.5 Ur Specific [place] (1.005-1.025) >= 1.030 H Urine Protein (Negative) mg/dL 30 H Urine Ketones (Negative) mg/dL 15 H Urine Blood (Negative) Moderate H Urine Nitrite (Negative) Negative Urine Bilirubin (Negative) Small H Urine Urobilinogen (Up TO 0.2) EU/dL 0.2 Ur Leukocyte Esterase (Negative) Negative Urine RBC (0-2) HPF 5-10 H Urine WBC (0-5) HPF Negative Ur Epithelial Cells (Negative) HPF Few Urine Crystals (Negative) HPF Few Amorphous Urine Bacteria (Negative) HPF Negative Urine Casts (Negative) LPF 3-5 Hyaline Urine Mucus (Negative) Negative Ur Culture Indicated? No Urine Glucose (Negative) mg/dL Negative
--- NOTE | 2022-10-18 16:38 | HPE_ITS ---
Date of service: 10/18/22 Time of Service: 16:38 Assessment and Plan Assessment and plan (1) Syncope: Status: Suspected Assessment and plan: patient denies syncope but admits to general weakness and allegedly eased herself onto her bedroom floor to scoot to the bathroom. corroborating her story is that she seems to have had no mechanical injury. However, she presented w/ rhabdomyolysis and JAYA. She will be monitored on telemetry to rule out arrhythmia and we will proceed w/ syncope workup include echo and EEG. She will be aggressively hydrated and renal function including serial BMP and urine o utput will be monitored. Professional time spent interviewing and examining patient, discussion of goals of care with hospital team (care management, nursing and consulting professionals) was 60 minutes. (2) Rhabdomyolysis: Status: Acute Assessment and plan: aggressive iv fluid hydration (@ 250 to 400 mL/hr) forcing brisk urine output of 2 to 3 mL/kg/hr; avoid nephrotoxins, keep her lisinopril on hold; workup for syncope, i.e. CT head, telemetry, echo, etc. (3) Acute kidney injury (nontraumatic): Status: Acute Assessment and plan: secondary to dehydration and rhabdomyolysis (4) Chronic kidney disease: Status: Chronic Assessment and plan: Baseline BUN and creatinine are 18 and 1.7 (5) HTN (hypertension): Assessment and plan: place her lisinopril on hold; monitor her BP, if she needs treatment then I would use norvasc or vasodilator; avoid ANGELINA-I or ARB Addendum: after looking up her external medication history it appears that she is not even on lisinopril but takes amlodipine 10 mg daily (6) Hypothyroidism (acquired): Assessment and plan: she seems to be over medicated w/ TSH of 0.03 and earlier this year she was 0.02 . I will hold her levothyroxine for a day and recommend a reduction to be done as outpatient. Her home med is listed as 25 mcg however I looked at the external med audit and it appears that her last Rx by [facility] was for levothyroxine 100 mcg daily sent on 08/11/22 History of Present Illness History of Present Illness Chief Complaint: found down Narrative: 77 yr old female w/ PMH of HTN and hypothyroidism and CKD (baseline BUN 18 and creatinine 1.7) who was found down on her bathroom floor for an unknown time. EMS was alerted by her medical alert bracelet activation. Patient denies any syncope, chest pain or dyspnea. She says that she recalls that she was waiting for friends to pick her up on Monday to take her to [facility] (she is a [employer]) but no on showed up. She was feeling very weak and slid off her bed onto the floor to scoot to the bathroom. However she can not account for why she did not activate her medic alert until today. She thought that today was Monday and thought that it is October however she did correctly identify the year and where she is at. Workup in the ED included routine labs which demonstrated JAYA w/ BUN 62 , creatinine 3. 4 and potassium 5.2 and CK 2262. Patient was started on IV fluids she was given 1 L normal saline as a bolus and then started on normal saline at 150 mL/h. Simms catheter has been placed to ensure that she is making urine. She had no imaging performed but we will get a CT of her head and C-spine to be sure there is been no injury although she denies any headache or neck pain. R est her labs were remarkable for leukocytosis 18,400 but she has no fever no shortness of breath no cough and no evidence of UTI. Urinalysis showed specific gravity greater than 1.030 with 30 mg/dL protein 50 mg/dL ketones moderate blood but negative nitrites and only 5-10 red cells negative for white cells or bacteria. Patient be admitted to the medical/surgical floor on telemetry for cardiac monitoring to rule out any arrhythmias as a cause for syncope she will continue to receive aggressive IV fluid hydration. Normal saline is been increased to 300 mL/h. Goal is for patient urine output 100 to 150 mL/h. Initial troponin I was normal @ 58 ng/L and EKG did not demonstrate any ischemia or injury pattern. Review of Systems All systems reviewed & are unremarkable except as noted in HPI and below PFSH All Active Problems (Updated 10/18/22 @ 18:29 by Ronald Hsu MD) Chronic kidney disease (Chronic) Acute kidney injury (nontraumatic) (Acute) Rhabdomyolysis (Acute) Medical History (Updated 10/18/22 @ 18:29 by Ronald Hsu MD) HTN (hypertension) Hypothyroidism (acquired) Incontinence Neoplasm of endometrium Surgical History Colonoscopy - MAC (10/09/17) Vaginal hysterectomy Social History Smoking/Tobacco Use Status: Never Smoking risk assessment performed?: Yes Alcohol Intake: never Drug use: Never Substance use type: does not use Do you feel safe at home: Yes Do you feel safe in your relationship?: Yes Meds Allergies and Home Medications Allergies Allergy/AdvReac Type Severity Reaction Status Date / Time Penicillins Allergy Unverified 10/18/22 17:19 Home Medications Medication Instructions Recorded Confirmed Type levothyroxine 25 mcg tablet 25 mcg PO DAILY 11/29/15 10/18/22 History (Synthroid) lisinopril 10 mg tablet 10 mg PO DAILY 10/04/17 10/18/22 History Exam Narrative Exam Narrative: Elderly white female who is alert she is oriented to person place and year. She appears to be in no acute respiratory distress. HEENT is remarkable for dry mucous membranes she is edentulous. Pupils equally round and reactive to light, sclera without icterus, arcus senilis present Neck is supple nontender normal range of motion normal carotid pulses Lungs are clear to auscultation Heart regular rate and rhythm Abdomen soft nontender no bruits no palpable masses no organomegaly Extremities without peripheral cyanosis or edema. She has slight bruising on her right elbow Neuro exam grossly intact no focal cranial nerve deficits no focal motor or sensory deficits. Brisk equal DTRs. Patient with slight tremor in her left hand. Results Labs Result diagrams: 10/18/22 15:40 10/18/22 15:40 Labs: Laboratory Results - last 24 hr 10/18/22 10/18/22 10/18/22 15:40 15:40 16:04 WBC 18.45 H RBC 4.03 Hgb 12.0 Hct 37.1 MCV 92 MCH 29.8 MCHC 32.3 RDW 12.2 Plt Count 317 MPV 9.7 Immature Gran % 0.7 Neutrophils % 88.8 Lymphocytes % 5.5 Monocytes % 4.9 Eosinophils % 0.0 Basophils % 0.1 Nucleated RBC % 0.0 Absolute Neutrophils 16.38 H Absolute Lymphocytes 1.01 L Absolute Monocytes 0.90 H Absolute Eosinophils 0.00 Absolute Basophils 0.02 Sodium 137 Potassium 5.2 H Chloride 103 Carbon Dioxide 19.4 L Anion Gap 14.6 H BUN 62 H Creatinine 3.4 H Est GFR (CKD-EPI 2020) 13.20 Glucose 96 Calcium 9.5 Total Bilirubin 1.8 H AST 157 H ALT 48 Alkaline Phosphatase 88 Creatine Kinase 2262 H Troponin I 58 Total Protein 8.0 Albumin 3.6 TSH 0.03 L Urine Color Yellow Urine Clarity Clear Urine pH 5.5 Ur Specific [place] >= 1.030 H Urine Protein 30 H Urine Ketones 15 H Urine Blood Moderate H Urine Nitrite Negative Urine Bilirubin Small H Urine Urobilinogen 0.2 Ur Leukocyte Esterase Negative Urine RBC 5-10 H Urine WBC Negative Ur Epithelial Cells Few Urine Crystals Few Amorphous Urine Bacteria Negative Urine Casts 3-5 Hyaline Urine Mucus Negative Ur Culture Indicated? No Urine Glucose Negative Last Vital Signs Temp 36.9 C 10/18/22 15:27 Pulse 94 H 10/18/22 15:27 Resp 20 10/18/22 15:27 BP 136/117 H 10/18/22 15:27 Pulse Ox 95 10/18/22 15:27
[2022-10-18 16:44] LABS: FREE T4 1.49 ng/dL (0.76-1.46)
[2022-10-18 16:45] LABS: Source Nasal/Nares
[2022-10-18 16:51] LABS: Lipase 131 U/L (73-393)
[2022-10-18 17:16] LABS: COVID-19 PCR Negative (Negative)
--- NOTE | 2022-10-18 18:13 | DI.VRAD_ITS ---
PROCEDURE INFORMATION: Exam: CT Head Without Contrast Exam date and time: 10/18/2022 5:52 PM Age: 77 years old Clinical indication: Injury or trauma; Fall; Blunt trauma (contusions or hematomas) TECHNIQUE: Imaging protocol: Computed tomography of the head without contrast. COMPARISON: No relevant prior studies available. FINDINGS: Brain: Mild volume loss No hemorrhage. Mild white matter disease. No mass effect. Cerebral ventricles: No ventriculomegaly. Paranasal sinuses: Visualized sinuses are unremarkable. No fluid levels. Mastoid air cells: Visualized mastoid air cells are well aerated. Bones/joints: Unremarkable. No acute fracture. Soft tissues: Unremarkable. IMPRESSION: No acute intracranial hemorrhage PROCEDURE INFORMATION: Exam: CT Cervical Spine Without Contrast Exam date and time: 10/18/2022 5:52 PM Age: 77 years old Clinical indication: Injury or trauma; Fall; Blunt trauma (contusions or hematomas) TECHNIQUE: Imaging protocol: Computed tomography of the cervical spine without contrast. COMPARISON: CR XR CHEST 2V PA LATERAL 07/20/2019 1:04 PM FINDINGS: Bones/joints: No acute fracture. Loss of cervical lordosis is presumably on a degenerative basis.No significant disc protrusion. No severe spinal canal stenosis. Lungs: 5 mm nodule in the right upper lobe with minimal spiculation. 2 mm left upper lobe nodule posteriorly Soft tissues: Unremarkable. IMPRESSION: No acute cervical fracture Upper lobe nodules as noted. Neoplasm not excluded Dictated and Authenticated by: Alvarado Walton MD. Ordering:MURRAY Guidry MD
[2022-10-18] MEDS: Normal Saline 1,000 ML 300 ML IV ×2 (18:58→23:29)
[2022-10-18 19:45] LABS: Troponin I 59 ng/L (<or=60)
[2022-10-18] MEDS: Heparin 5,000 UNITS/ML VIAL 5000 UNITS SC (21:10)
[2022-10-18 22:29] LABS: Anion Gap 14.4 mmol/L (3-11); BUN 67 mg/dL (7-18); CO2 17.6 mmol/L (21.0-32.0); Calcium 8.8 mg/dL (8.5-10.1); Chloride 104 mmol/L (98-107); Estimated GFR 12.32 (mL/min/1.73m2); Glucose 174 mg/dL (74-106); Potassium 4.6 mmol/L (3.5-5.1); Sodium 136 mmol/L (136-145)
[2022-10-18 22:31] LABS: CREATININE 3.6 mg/dL (0.55-1.02)
[2022-10-19] VITALS (10 sets, daily range): BP systolic 110–149; BP diastolic 56–71; PULSE 67–89; RESP 16–19; TEMP 36.7–37.3; O2SAT 92–97
[2022-10-19] MEDS: Normal Saline 1,000 ML 300 ML IV ×2 (02:26→06:22)
[2022-10-19] MEDS: Heparin 5,000 UNITS/ML VIAL 5000 UNITS SC ×3 (06:22→22:13)
[2022-10-19 06:30] LABS: Abs Immature Grans 0.04 10^3/uL (0.0-0.06); Absolute Lymphocyte Count 2.07 10^3/uL (1.2-3.4); Absolute Neutrophil Count 10.72 10^3/uL (1.2-6.7); Basophils % 0.1; HCT 30.2 % (36.0-46.0); HGB 9.7 g/dL (11.2-15.7); Immature Grans % 0.3; Lymphocytes % 14.9; MCH 29.8 pg (27.0-33.0); MCHC 32.1 % (32.0-36.0); MCV 93 fL (80-95); MPV 9.3 fL (8.0-11.0); Monocytes % 7.4; Neutrophils % 77.3; Platelet Count 235 10^3/uL (130-400); RBC 3.26 10^6/uL (3.93-5.22); RDW 12.2 % (11.7-14.6); RDW-SD 41.7 fL; WBC 13.87 10^3/uL (4.4-10.8)
[2022-10-19 06:32] LABS: Absolute Basophil Count 0.01 10^3/uL (0.0-0.2); Absolute Monocyte Count 1.03 10^3/uL (0.1-0.8)
[2022-10-19 06:58] LABS: ALT 39 U/L (14-59); AST 103 U/L (15-37); Albumin 2.9 g/dL (3.4-5.0); Alkaline Phosphatase 71 U/L (46-116); Anion Gap 11.4 mmol/L (3-11); BUN 57 mg/dL (7-18); Bilirubin, Total 1.4 mg/dL (0.2-1.0); CO2 20.6 mmol/L (21.0-32.0); CREATININE 2.8 mg/dL (0.55-1.02); Calcium 8.3 mg/dL (8.5-10.1); Chloride 106 mmol/L (98-107); Estimated GFR 16.66 (mL/min/1.73m2); Glucose 103 mg/dL (74-106); Magnesium 2.1 mg/dL (1.8-2.4); Sodium 138 mmol/L (136-145); Total Protein 6.2 g/dL (6.4-8.2)
[2022-10-19 07:03] LABS: Creatine Kinase 1493 U/L (26-192)
--- NOTE | 2022-10-19 09:25 | PDOC.CMIN ---
- If Service Date Differs Date of service: 10/19/22 Time of Service: 09:25 Care Management Initial Assess REASON FOR HOSPITALIZATION:: Syncope, Rhabdomyolysis, JAYA PAST MEDICAL HISTORY/PAST SURGICAL HISTORY:: All Active Problems (Updated 10/18/22 @ 18:29 by Ronald Hsu MD). Chronic kidney disease (Chronic). Acute kidney injury (nontraumatic) (Acute). Rhabdomyolysis (Acute). Medical History (Updated 10/18/22 @ 18:29 by Ronald Hsu MD). HTN (hypertension). Hypothyroidism (acquired). Incontinence. Neoplasm of endometrium. Surgical History . Colonoscopy - MAC (10/09/17). Vaginal hysterectomy PREVIOUS FUNCTIONAL STATUS/SOCIAL/FAMILY SUPPORTS:: Dania lives alone in [facility]. She has a son (Kyle) who lives in [place] and a daughter (Bong) who lives in [place]. Bong comes to town frequently and takes her grocery shopping. Madison reports that she is relatively independent at baseline. Dania enjoys watching and feeding the birds outside her window. CURRENT FUNCTIONAL STATUS:: Madison is sitting in her chair when CM met with her. She is awake, alert and pleasant in interaction. Madison shares that she wants to discharge home when she feels better. She indicates that does well at home, however the last few weeks have been challanging. Per Dania, she has a supportive family but no local family. CM spoke with Bong via phone. Per Bong, she visits her mom frequently and just stayed with her for a few days last week for Thanksgiving. She was doing well and independent with her ADL's. The two even went grocery shopping and Dania walked around the store independently with a walker. The family have had concerns with Dania's cognition for the last few years. Bong is concerned that her mom may not be eating enough and has been trying to get Dania to move to [place] with her, but pt has not been ready. She notes that she almost had her convinced to move in with her last week. Bong shares that she would be willing to come to town on Monday, and take her back to [place] to live, if she is willing. ADVANCE DIRECTIVES:: None on file at [facility]. Has patient been provided with info about the portal/API?: Yes Did the patient sign up for the portal?: No CODE STATUS:: Full Code INSURANCE COVERAGE / FINANCIAL ISSUES:: Medicaid. Medicare CURRENT HOME/COMMUNITY SERVICES/EQUIPMENT:: [employer]. PRIMARY CARE PHYSICIAN:: Palak Casas POTENTIAL DISCHARGE NEEDS:: Increased community support, SNF for STR, transportation PATIENT/FAMILY EDUCATION NEEDS:: Review discharge instructions, limitations, medications and plan to follow up with community providers and discharge plan of care. Discuss ask me three and goals of self care. TRANSPORTATION:: Dependent on disposition. PLAN:: Anticipate Dania will discharge to SNF for STR vs. Bong's home with coordination of VNA services in [place] vs. Home with New [facility] services/ increased community support when medically ready. Transportation will be dependent on disposition. will continue to support. Bong's contact info: (C) [phone], (H) [phone]
[2022-10-19] MEDS: Lactated Ringers 1,000 ML 200 ML IV ×2 (09:40→16:24)
[2022-10-19] MEDS: Normal Saline Flush 10 ML SYR (09:41)
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
[2022-10-19 11:31] LABS: Lab Add On Test DONE
[2022-10-19 12:01] LABS: Procalcitonin 1.5 ng/mL
[2022-10-19 13:05] LABS: HCT 28.1 % (36.0-46.0); HGB 9.6 g/dL (11.2-15.7)
--- NOTE | 2022-10-19 15:07 | DI.US_ITS ---
APPROVED REPORT EXAM: Comprehensive 2D, Doppler, and color-flow Echocardiogram Patient Location: In-Patient Room/Bed: [address] Worker: Erin Elmore RDCS (AE) Indications: Syncope Other Information Study Quality: Fair. Technically limited study due to body habitus, inability to position patient exa m done supine bedside. Conclusion Normal left ventricular wall thickness and chamber size. Estimated ejection fraction is 55 to 60%. Wall motion is normal Normal right ventricular size and systolic function The left atrium is mildly to moderately dilated. Right atrial size is normal The aortic valve is sclerotic and trileaflet with trace regurgitation. No aortic stenosis Normal mitral valve with mild to moderate regurgitation Normal tricuspid valve with trace regurgitation. Right ventricular systolic pressure could not be es timated Mildly dilated ascending aorta 3.45 cm Wall motion Left Ventricle The left ventricle is normal size. The left ventricular systolic function is normal. The left ventric ular ejection fraction is within the normal range. There is normal left ventricular wall thickness. T here is normal LV segmental wall motion. There is no ventricular septal defect visualized. LVEF is 58 %. Right Ventricle The right ventricle is normal size. The right ventricular systolic function is normal. Atria Left atrium is mild to moderately dilated. The right atrium size is normal. The interatrial septum is intact with no evidence for an atrial septal defect. Aortic Valve The Aortic valve is sclerotic. Aortic valve is trileaflet. There is no aortic valvular stenosis. Trac e aortic regurgitation. Mitral Valve The mitral valve is normal in structure. No evidence of mitral valve stenosis. Mild to moderate gita l regurgitation. Tricuspid Valve The tricuspid valve is normal in structure. There is no tricuspid valve stenosis. Trace tricuspid reg urgitation. Unable to assess PA pressure. Pulmonic Valve The pulmonary valve is normal in structure. There is no pulmonic valvular stenosis. Mild pulmonic reg urgitation. Great Vessels The aortic root is normal in size. The ascending aorta is mildly dilated. Aortic arch is normal in ca liber. IVC is normal in size and collapses >50% with inspiration. Pericardium There is no pericardial effusion. 2D Dimensions IVSD d PLAX 0.98 cm F: 0.6-1.0 LV Vol A2C d MOD 90.6 mL LVPW d PLAX 0.95 cm F: 0.6 - 1.0 LV Vol A4C d MOD 102.7 mL LVID d PLAX 4.79 cm F: 3.8 - 5.2 LA vol/ BSA A2C s A-L 43.8 mL/m2 LVDs 3.25 cm F: 2.2 - 3.5 LA vol/ BSA A4C s A-L 43.1 mL/m2 Ao Root d 2.60 cm F: 2.7 - 3.3 LA Vol/ BSA Biplane s A-L 43.8 mL/m2 RA Area A4C 13.10 cm2 LA Area A4C s MOD 22.29 cm2 RA Vol/ BSA A4C s A-L 16.2 mL/m2 LA Area A2C s MOD 22.29 cm2 Ao Asc Diam d 3.45 cm F: 2.3 - 3.1 LV EF A4C MOD 58.0 % LV EF Teichholz 59.2 % LV EF A2C MOD 58.0 % LVEF (Martines's) 56.81 % F: 54 - 74 LV EF Biplane MOD 56.8 % LV Volume 77.33 mL F: 46 - 106 SV 55.80 mL LV Volume Index 44.44 mL/m2 F: 29 - 61 SV Index 32.07 mL/m2 LV Vol Biplane MOD 98.2 mL FS 31.40 % M-Mode TAPSE 3.05 cm (M/F) >1.7 LV Diastology MV E' medial 0.090 (>0.07 m/s) E/A Ratio 0.9 LV E/e MED 9.80 (<14) MV E Vmax 0.88 (0.4-1.3 m/s) MV E' lateral 0.096 (>0.1 m/s) MV A Vmax 0.95 (0.4-1.3 m/s) LV E/e LAT 9.15 (<14) MV E/A Ratio 0.92 MV E/E' medial 9.82 MV E/E' lateral 9.15 Aortic Valve LVOT Area 3.56 cm2 AoV Area Vmax 2.30 cm2 LVOT Vmax 1.17 m/s AoV Area/ BSA (Vmax) 1.32 cm2/m2 LVOT Mean Barry. 0.76 m/s ANNA Mean Barry. 2.14 cm2 LVOT Peak Grad 5.5 mmHg ANNA Mean Barry. Index 1.23 cm2/m2 LVOT Mean Grad 2.7 mmHg LVOT VTI 0.277 m LVOT Diam s 2.10 cm AoV Vmax 1.82 m/s Velocity Ratio 0.64 AoV Mean Barry. 1.26 m/s AoV Peak Grad 13.2 mmHg LVOT SV 98.55 mL AoV Mean Grad 7.3 mmHg AoV VTI 0.356 m AoV Area VTI 2.77 cm2 AoV Area/ BSA (VTI) 1.59 cm/m2 Mitral Valve MV DT 238 (160-240 msec) MV PHT 69 msec MV Area PHT 3.19 cm2 MV VTI 0.427 m MV Area VTI 2.31 (4.0-6.0 cm2) Pulmonary Valve PV Vmax 1.09 (0.5-1.5 m/s) RVOT Peak Gr. 2.69 mmHg PV Peak Grad 4.7 mmHg RVOT Mean Gr. 1.35 mmHg PV Mean Grad 2.5 mmHg RVOT VTI 0.199 m PV VTI 0.221 m RVOT Vmax 0.82 m/s
--- NOTE | 2022-10-19 15:10 | PT.INTREAT ---
Date of service: 10/19/22 Time of Service: 10:55 PT Notes Visit Reasons: JAYA,Dehydration,Rhabdomyolysis Inpatient Physical Therapy Treatment Note [facility] Date: 10/19/2022 PRECAUTIONS: Fall, activity as tolerated, confusion SUBJECTIVE: Dania is pleasant and agreeable to participating in PT. She states that she really wants to go home. She states that she is not sure how much walking she will be able to do today. OBJECTIVE: PAIN: Patient c/o pain in R hip, which she reports is chronic from a past LAURA procedure. BED MOBILITY/TRANSFERS Sit-supine: Min A of B LE Sit-stand: Min A x2 Stand-sit: CGA x2 Chair-bed: CGA x2 GAIT Assistive Device: FWW Weight bearing: Full Assist: CGA x2 Distance: 10' Deviation: Slow pacing, cueing for FWW management THEREX: Patient was instructed in LE strengthening and stabilization program, completed in a supine position, to include: ankle pumps, quad sets, glute sets, hip flexion and hip abduction. She requires assist with hip flexion and abduction on R due to weakness and pain. ASSESSMENT: Patient tolerated session well without complaint. She continues to demonstrate limited activity tolerance and requires Min A x2 with bed mobility and transfers. PLAN: Continue with general conditioning and global strengthening for improved mobility and activity tolerance and progression toward baseline level of function to obtain her goal of returning to home independently. TREATMENT CODE/TIME: 25 minutes; 96941, 27589 (13:55)
--- NOTE | 2022-10-19 16:12 | PGE_ITS ---
Date of Service Date of service: 10/19/22 Time of Service: 16:13 Assessment and Plan Assessment and plan (1) Syncope: Status: Suspected Assessment and plan: continue w/ syncope workup include echo and EEG. She was aggressively hydrated and renal function including serial BMP and urine output closely monitored. stable at this time (2) Rhabdomyolysis: Status: Acute Assessment and plan: CPK trending downward; avoid nephrotoxins, keep her lisinopril on hold (3) Acute kidney injury (nontraumatic): Status: Acute Assessment and plan: secondary to dehydration and rhabdomyolysis creatinine improving with hydration (4) Chronic kidney disease: Status: Chronic Assessment and plan: Baseline BUN and creatinine are 18 and 1.7 (5) HTN (hypertension): Assessment and plan: amlodipine 10 mg daily, blood pressure stable (6) Hypothyroidism (acquired): Assessment and plan: she seems to be over medicated w/ TSH of 0.03 and earlier this year she was 0.02. continue to hold levothyroxine for a day and recommend a reduction to be done as outpatient. Her home med is listed as 25 mcg however an external med audit shows her last Rx by [facility] was for levothyroxine 100 mcg daily sent on 08/11/22. (7) Discharge planning issues: Status: Acute Assessment and plan: PT/OT consulted anticipate discharge to [facility] facility when medically stable. discussed with DR Ambrosio Subjective Subjective Patient reports: no new complaints, tolerating liquids well, tolerating a regular diet and afebrile; denies shortness of breath Objective Last Vital Signs Temp 37.0 C 10/19/22 14:59 Pulse 81 10/19/22 14:59 Resp 16 10/19/22 14:59 BP 126/56 L 10/19/22 14:59 Pulse Ox 93 10/19/22 14:59 Laboratory Results - last 24 hr 10/18/22 10/18/22 10/18/22 15:40 15:40 16:04 WBC RBC Hgb Hct MCV MCH MCHC RDW Plt Count MPV Immature Gran % Neutrophils % Lymphocytes % Monocytes % Eosinophils % Basophils % Nucleated RBC % Absolute Neutrophils Absolute Lymphocytes Absolute Monocytes Absolute Eosinophils Absolute Basophils Sodium 137 Potassium 5.2 H Chloride 103 Carbon Dioxide 19.4 L Anion Gap 14.6 H BUN 62 H Creatinine 3.4 H Est GFR (CKD-EPI 2020) 13.20 Glucose 96 Calcium 9.5 Magnesium Total Bilirubin 1.8 H AST 157 H ALT 48 Alkaline Phosphatase 88 Creatine Kinase 2262 H Troponin I 58 Total Protein 8.0 Albumin 3.6 Lipase 131 Procalcitonin TSH 0.03 L Free T4 1.49 H Urine Color Yellow Urine Clarity Clear Urine pH 5.5 Ur Specific [place] >= 1.030 H Urine Protein 30 H Urine Ketones 15 H Urine Blood Moderate H Urine Nitrite Negative Urine Bilirubin Small H Urine Urobilinogen 0.2 Ur Leukocyte Esterase Negative Urine RBC 5-10 H Urine WBC Negative Ur Epithelial Cells Few Urine Crystals Few Amorphous Urine Bacteria Negative Urine Casts 3-5 Hyaline Urine Mucus Negative Ur Culture Indicated? No Urine Glucose Negative COVID-19 Source SARS-CoV-2 (PCR) Add-On Test Request 10/18/22 10/18/22 10/18/22 16:40 19:13 20:00 WBC RBC Hgb Hct MCV MCH MCHC RDW Plt Count MPV Immature Gran % Neutrophils % Lymphocytes % Monocytes % Eosinophils % Basophils % Nucleated RBC % Absolute Neutrophils Absolute Lymphocytes Absolute Monocytes Absolute Eosinophils Absolute Basophils Sodium Cancelled Potassium Cancelled Chloride Cancelled Carbon Dioxide Cancelled Anion Gap Cancelled BUN Cancelled Creatinine Cancelled Est GFR (CKD-EPI 2020) Cancelled Glucose Cancelled Calcium Cancelled Magnesium Total Bilirubin AST ALT Alkaline Phosphatase Creatine Kinase Troponin I 59 Total Protein Albumin Lipase Procalcitonin TSH Free T4 Urine Color Urine Clarity Urine pH Ur Specific [place] Urine Protein Urine Ketones Urine Blood Urine Nitrite Urine Bilirubin Urine Urobilinogen Ur Leukocyte Esterase Urine RBC Urine WBC Ur Epithelial Cells Urine Crystals Urine Bacteria Urine Casts Urine Mucus Ur Culture Indicated? Urine Glucose COVID-19 Source Nasal/Nares SARS-CoV-2 (PCR) Negative Add-On Test Request 10/18/22 10/19/22 10/19/22 22:06 06:19 06:19 WBC 13.87 H RBC 3.26 L Hgb 9.7 L D Hct 30.2 L MCV 93 MCH 29.8 MCHC 32.1 RDW 12.2 Plt Count 235 MPV 9.3 Immature Gran % 0.3 Neutrophils % 77.3 Lymphocytes % 14.9 Monocytes % 7.4 Eosinophils % 0.0 Basophils % 0.1 Nucleated RBC % 0.0 Absolute Neutrophils 10.72 H Absolute Lymphocytes 2.07 Absolute Monocytes 1.03 H Absolute Eosinophils 0.00 Absolute Basophils 0.01 Sodium 136 138 Potassium 4.6 4.0 Chloride 104 106 Carbon Dioxide 17.6 L 20.6 L Anion Gap 14.4 H 11.4 H BUN 67 H 57 H Creatinine 3.6 H* 2.8 H Est GFR (CKD-EPI 2020) 12.32 16.66 Glucose 174 H 103 Calcium 8.8 8.3 L Magnesium 2.1 Total Bilirubin 1.4 H AST 103 H ALT 39 Alkaline Phosphatase 71 Creatine Kinase 1493 H Troponin I Total Protein 6.2 L Albumin 2.9 L Lipase Procalcitonin TSH Free T4 Urine Color Urine Clarity Urine pH Ur Specific [place] Urine Protein Urine Ketones Urine Blood Urine Nitrite Urine Bilirubin Urine Urobilinogen Ur Leukocyte Esterase Urine RBC Urine WBC Ur Epithelial Cells Urine Crystals Urine Bacteria Urine Casts Urine Mucus Ur Culture Indicated? Urine Glucose COVID-19 Source SARS-CoV-2 (PCR) Add-On Test Request 10/19/22 10/19/22 10/19/22 06:19 06:19 12:58 WBC RBC Hgb 9.6 L Hct 28.1 L MCV MCH MCHC RDW Plt Count MPV Immature Gran % Neutrophils % Lymphocytes % Monocytes % Eosinophils % Basophils % Nucleated RBC % Absolute Neutrophils Absolute Lymphocytes Absolute Monocytes Absolute Eosinophils Absolute Basophils Sodium Potassium Chloride Carbon Dioxide Anion Gap BUN Creatinine Est GFR (CKD-EPI 2020) Glucose Calcium Magnesium Total Bilirubin AST ALT Alkaline Phosphatase Creatine Kinase Troponin I Total Protein Albumin Lipase Procalcitonin 1.5 TSH Free T4 Urine Color Urine Clarity Urine pH Ur Specific [place] Urine Protein Urine Ketones Urine Blood Urine Nitrite Urine Bilirubin Urine Urobilinogen Ur Leukocyte Esterase Urine RBC Urine WBC Ur Epithelial Cells Urine Crystals Urine Bacteria Urine Casts Urine Mucus Ur Culture Indicated? Urine Glucose COVID-19 Source SARS-CoV-2 (PCR) Add-On Test Request DONE
[2022-10-20] VITALS (10 sets, daily range): BP systolic 125–155; BP diastolic 66–79; PULSE 55–91; RESP 16–19; TEMP 36.6–37.2; O2SAT 94–97
[2022-10-20] MEDS: Lactated Ringers 1,000 ML 125 ML IV ×3 (01:01→21:28)
[2022-10-20] MEDS: Normal Saline Flush 10 ML SYR IVP ×2 (01:41→21:29)
[2022-10-20] MEDS: Normal Saline Flush 10 ML SYR (02:06)
[2022-10-20] MEDS: Heparin 5,000 UNITS/ML VIAL 5000 UNITS SC ×3 (06:47→21:17)
[2022-10-20 07:04] LABS: Abs Immature Grans 0.02 10^3/uL (0.0-0.06); Absolute Basophil Count 0.02 10^3/uL (0.0-0.2); Absolute Eosinophil Count 0.06 10^3/uL (0.0-0.7); Absolute Lymphocyte Count 1.85 10^3/uL (1.2-3.4); Absolute Monocyte Count 0.63 10^3/uL (0.1-0.8); Absolute Neutrophil Count 4.63 10^3/uL (1.2-6.7); Basophils % 0.3; Eosinophils % 0.8; HCT 26.3 % (36.0-46.0); HGB 8.7 g/dL (11.2-15.7); Immature Grans % 0.3; Lymphocytes % 25.7; MCH 30.3 pg (27.0-33.0); MCHC 33.1 % (32.0-36.0); MCV 92 fL (80-95); MPV 9.9 fL (8.0-11.0); Monocytes % 8.7; Neutrophils % 64.2; Platelet Count 204 10^3/uL (130-400); RBC 2.87 10^6/uL (3.93-5.22); RDW 12.3 % (11.7-14.6); RDW-SD 41.1 fL; WBC 7.21 10^3/uL (4.4-10.8)
--- NOTE | 2022-10-20 07:31 | OT.INIE ---
Occupational Therapy Notes Inpatient Occupational Therapy Evaluation Date: 10/20/22 Referring Doctor:Dr. Hsu OT Orders: Non urgent- safety consult Precautions: Fall, Standard, full PATIENT PROFILE/ADMITTING DIAGNOSIS: Pt is a 77 year old female who was referred to skilled Occupational Therapy services after being admitted to [facility] from the ED on 10/18/22 due to a fall at home with a unknown amount of time on the floor as well as for Syncope, Rhabdomyolysis, JAYA Past Medical History: All Active Problems?(Updated 10/18/22 @ 18:29 by Ronald Hsu MD) Chronic kidney disease (Chronic) Acute kidney injury (nontraumatic) (Acute) Rhabdomyolysis (Acute) Medical History?(Updated 10/18/22 @ 18:29 by Ronald Hsu MD) HTN (hypertension) Hypothyroidism (acquired) Incontinence Neoplasm of endometrium Surgical History? Colonoscopy - MAC (10/09/17) Vaginal hysterectomy Social History/Home Situation: Lives in a private home alone. She reports that she is (I) at her baseline but that she does not drive. She utilizes a FWW/cane for functional mobility at her baseline level of function. She notes that she feels like she can do everything she needs to do when she is home but reports that her bathing is occasionally. SUBJECTIVE: Pt was sitting in bed when OT arrived. She is reporting that she does not feel that she can go to [place] because she is concerned her bills will not be paid. She states that she would like to return home and she is nervous that she will lose her home if no one pays her bills. OBJECTIVE: General Observation: Pleasant, IV in (L) UE Mental Status: A&Ox2 Pain: no c/o pain during OT consult ROM: RUE AROM WFL L UE AROM WFL STRENGTH: RUE shoulder flexion 3/5, bicep/tricep 3-/5, professor of biological sciences is weak LUE shoulder flexion 3/5, bicep/tricep 4/5, professor of biological sciences is Fair FUNCTIONAL MOBILITY/ADLS: BATHING max (A) Set up/clean Bathing UE (I) face and (B) UE Bathing LE pt denies DRESSING Dressing UE Pt denies Dressing LE Max (A) EATING sitting in bed (I) with hand to mouth with no issues chewing or swallowing. BALANCE: Static sitting Normal Dynamic Sitting Good INFORMED CONSENT/EDUCATION: Pt instructed in purpose of OT Consult and plan of care. ASSESSMENT: Patient is a 77-year-old female referred to occupational therapy services with diagnosis of acute kidney injury, chronic kidney disease, hypertension, and hypothyroidism. Patient presents with clinical signs and symptoms consistent with dx, as demonstrated by the following impairment level findings/functional limitations: Impairments in ADL/IADL and leisure activities, slight confusion, decreased functional activity tolerance, decreased UE strength, decreased UE functional activity tolerance. Patient is assessed as a Moderate 08755 complexity based on the following: History: see above Examination: see functional limitations as noted above Presentation: evolving Decision Making: moderate complexity GOALS Goals x1 week 1. Transfers with min (A) 2. Dressing seated with min (A) 3. Bathing seated (I) 4. Toileting on commode (I) 5. Eating (I) PLAN OF CARE/TREATMENT PLAN: 1x/day, 5 days/ week x 1week Initiate Occupational Therapy Services for bathing, dressing, grooming, toileting, eating, transfer training. DISCHARGE RECOMMENDATIONS SNF when medically cleared per MD for continued skilled rehabilitation. TREATMENT TIME/MINUTES/CODES 16839, 20 minutes Rebecca Roberts OTR/[facility]
[2022-10-20 07:58] LABS: Anion Gap 8.1 mmol/L (3-11); BUN 37 mg/dL (7-18); CO2 22.9 mmol/L (21.0-32.0); Calcium 8.6 mg/dL (8.5-10.1); Chloride 107 mmol/L (98-107); Estimated GFR 24.94 (mL/min/1.73m2); Ferritin 128 ng/mL (8-252); Folate 8.6 ng/mL (8.6-20.0); Glucose 92 mg/dL (74-106); Magnesium 1.7 mg/dL (1.8-2.4); Potassium 3.6 mmol/L (3.5-5.1); Sodium 138 mmol/L (136-145); Vitamin B12 461 pg/mL (193-986)
[2022-10-20 07:59] LABS: Iron 47 ug/dL (50-170); Total Iron Binding Capacity 165 ug/dL (250-450); Transferrin Sat 28 % (15-50)
[2022-10-20 08:12] LABS: Creatine Kinase 596 U/L (26-192)
--- NOTE | 2022-10-20 09:52 | CMPROGNOTE_ITS ---
- If Service Date Differs Date of service: 10/20/22 Time of Service: 09:53 Care Management Progress Note S/O: Madison is sitting in her chair when CM met with her. She is awake, alert and appears less confused. Per PT, Dania will requires SNF for STR. Dania is offered a bed at [facility] in [place], she refuses to go to [place]. CM found a SNF in [place] ([facility] in [place]) which is 15 minutes from pts daughter Bong, sent a referral and Dania is offered a bed , which Dania gladly accepts. [facility] would like to admit Dania tomorrow no later than 4pm. Bong is going to provide transportation, and is working in getting a sub for work. CM to follow. A: 77 year old female admitted to [facility] on 10/18/22 for Syncope, Rhabdomyolysis, JAYA P: PT recommends SNF for STR. Dania has accepted a bed at [facility] in [place], [place] (15 minutes from her daughter Bong). Bong will provide transportation. Covid test is pending, nurse to nurse is completed. CM will continue to support. Bong's contact info: (C) [phone], (P) [phone]
--- NOTE | 2022-10-20 11:45 | TELEFU_ITS ---
Date of service: 10/20/22 Time of Service: 11:45 Nutrition Note NOTE: Ms. Brice is ordered a minced and moist diet- unclear why she needs this texture. Patient requests regular texture. No BENEFITS COORDINATOR available this week. Request hospitalist to change to regular texture if appropriate. Time Spent in Nutritional Counseling and Treatment: 0
--- NOTE | 2022-10-20 12:04 | PDOC.EEG ---
Neurology EEG EEG: [facility] Department of Neurology INPATIENT EEG REPORT Date of Recordin10/20/22 Interpreting Physician: Dr. Shell Luz Reason for study: Ms. Brice is a 77 year-old admitted after a possible syncopal event. Current Medications: Current Medications Acetaminophen (Acetaminophen 325 Mg Tab) 0 mg PO Q4H PRN PRN Al Hydrox/Mg Hydrox/Simethicone (Mylanta Suspension 30 Ml Cup) 30 ml PO Q2H PRN PRN Dimethicone/Zinc Oxide (Yazan Protect Cream 142 Gm Tube) 0 gm TP PRN PRN Docusate Sodium (Docusate Sodium 100 Mg Cap) 100 mg PO TID PRN PRN Ferrous Sulfate (Ferrous Sulfate 325 Mg Tab) 325 mg PO BID GALILEO Heparin Sodium (Porcine) (Heparin 5,000 Units/Ml Vial) 5,000 units SC Q8H [facility] Last Admin: 10/20/22 06:47 Dose: 5,000 units Ringer's Solution () 1,000 mls @ 125 mls/hr IV INFUSION [facility] Last Admin: 10/20/22 10:27 Dose: 125 mls/hr Magnesium Sulfate/Dextrose () 1 gm in 100 mls @ 100 mls/hr IVPB NOW ONE Stop: 10/20/22 12:43 Iron/Minerals/Multivitamins (Multivitamin W/Minerals Tab) 1 tab PO DAILY G[place]ILEO Magnesium Hydroxide (Milk Of Magnesia 30 Ml Cup) 30 ml PO DAILY PRN PRN Polyethylene Glycol (Polyethylene Glycol 3350 17 Gm Packet) 17 gm PO DAILY PRN PRN PRN Reason: Constipation Sodium Chloride (Normal Saline Flush 10 Ml Syr) 0 ml IVP PRN PRN Last Admin: 10/20/22 01:41 Dose: 30 ml METHODS: A 21 channel digitized electroencephalogram was performed in the [facility] Med/Surg Floor or ICU. The 10/20 international system of electrode placement was used and bipolar and referential electrode montages were recorded. In addition to EEG the patient was monitored for EKG and lateral/vertical eye movements. Activation procedures of photic stimulation and hyperventilation were performed if applicable. Video was used during activation procedures and during events where applicable. The duration of the recording was 30 minutes. DESCRIPTION OF EEG: The patient was noted to be awake only during the recording. During maximal wakefulness a 10-Hz posterior background rhythm was present which was well-modulated, symmetrical, reactive to eye opening, and of moderate voltage. With eye opening the background activity changed to a low voltage mixture of alpha, beta, and occasional theta range frequencies. Faster frequencies were present in the bilateral anterior head regions. There was a normal anterior-posterior voltage gradient. No drowsiness or stage II sleep was recorded. Activating Procedures: Photic stimulation was performed which produced a symmetrical posterior driving response at various flash frequencies. Hyperventilation was not performed. EKG: EKG revealed an irregular rhythm - heart block? INTERPRETATION: This EEG is normal during the awake state as well as during photic stimulation. The EKG revealed an irregular rhythm. PRIOR EEG: none CLINICAL CORRELATION: No focal regions of cerebral dysfunction or epileptiform activity was present. No sleep was recorded during the study which reduces the sensitivity of the exam. If seizure remains a part of the differential, consider a repeat sleep-deprived EEG or overnight ambulatory EEG. Epilepsy remains a clinical diagnosis and a normal EEG does not rule out epilepsy. Clinical correlation is advised. Shell Luz MD
--- NOTE | 2022-10-20 12:24 | NUR.NOTE ---
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 lNursing Note:
[2022-10-20] MEDS: MAGNESIUM SULFATE 1 GM/100 ML BAG IVPB (12:26)
--- NOTE | 2022-10-20 15:12 | W.PM.PROGNOT ---
Date of Service Date of service: 10/20/22 Time of Service: 15:12 Assessment and Plan Assessment and plan (1) Syncope: Status: Suspected Assessment and plan: continue w/ syncope workup include echo and EEG. She was aggressively hydrated and renal function including serial BMP and urine output closely monitored. stable at this time (2) Rhabdomyolysis: Status: Acute Assessment and plan: CPK trending downward; avoid nephrotoxins, keep her lisinopril on hold (3) Acute kidney injury (nontraumatic): Status: Acute Assessment and plan: secondary to dehydration and rhabdomyolysis creatinine improving with hydration (4) Chronic kidney disease: Status: Chronic Assessment and plan: Baseline BUN and creatinine are 18 and 1.7 (5) HTN (hypertension): Assessment and plan: amlodipine 10 mg daily, blood pressure stable (6) Hypothyroidism (acquired): Assessment and plan: she seems to be over medicated w/ TSH of 0.03 and earlier this year she was 0.02. continue to hold levothyroxine for a day and recommend a reduction to be done as outpatient. Her home med is listed as 25 mcg however an external med audit shows her last Rx by [facility] was for levothyroxine 100 mcg daily sent on 08/11/22. (7) Discharge planning issues: Status: Acute Assessment and plan: PT/OT consulted anticipate discharge to shelter facility in [place] next to her daughter tomorrow. will be transported by private vehicle. routine covid test pending. discussed with DR Ambrosio Subjective Subjective Patient reports: no new complaints, feels better, tolerating liquids well, tolerating a regular diet and afebrile Interval history since last seen: patient with cognitive impairment, unclear how off this is from her baseline. easily redirected, no behavioral issues. poor historian Exam Const General: cooperative, healthy appearing, no acute distress and frail appearing Nutritional Appearance: average body habitus Orientation: alert, awake and oriented x3 HENMT Head: normal to inspection, normocephalic and atraumatic Mouth: oral mucosae normal Resp Effort & Inspection: normal respiratory effort Cardio Rate: regular rate Rhythm: regular rhythm GI Inspection: normal to inspection Palpation: soft Objective Last Vital Signs Temp 36.9 C 10/20/22 11:56 Pulse 58 L 10/20/22 11:56 Resp 17 10/20/22 11:56 BP 125/68 10/20/22 11:56 Pulse Ox 95 10/20/22 11:56 Laboratory Results - last 24 hr 10/20/22 10/20/22 10/20/22 06:00 06:00 06:00 WBC 7.21 RBC 2.87 L Hgb 8.7 L Hct 26.3 L MCV 92 MCH 30.3 MCHC 33.1 RDW 12.3 Plt Count 204 MPV 9.9 Immature Gran % 0.3 Neutrophils % 64.2 Lymphocytes % 25.7 Monocytes % 8.7 Eosinophils % 0.8 Basophils % 0.3 Nucleated RBC % 0.0 Absolute Neutrophils 4.63 Absolute Lymphocytes 1.85 Absolute Monocytes 0.63 Absolute Eosinophils 0.06 Absolute Basophils 0.02 Sodium 138 Potassium 3.6 Chloride 107 Carbon Dioxide 22.9 Anion Gap 8.1 BUN 37 H Creatinine 2.0 H Est GFR (CKD-EPI 2020) 24.94 Glucose 92 Calcium 8.6 Magnesium 1.7 L Iron 47 L TIBC 165 L Transferrin % Sat 28 Ferritin 128 Creatine Kinase 596 H Vitamin B12 461 Folate 8.6
--- NOTE | 2022-10-20 16:33 | PT.INTREAT ---
Date of service: 10/20/22 Time of Service: 13:05 PT Notes Visit Reasons: JAYA,Dehydration,Rhabdomyolysis Inpatient Physical Therapy Treatment Note [facility] Date: 10/20/2022 PRECAUTIONS: Fall, activity as tolerated, confusion SUBJECTIVE: Dania is pleasant and agreeable to participating in PT. She reports that one day she was able to walk, then all of a sudden, she was like this. She insists that she does not want to be far from home, but agrees that she likely needs ST rehab based on her current mobility level. She expresses concern about paperwork for her protestant and having her bills paid. OBJECTIVE: PAIN: Patient c/o pain in R hip, which she reports is chronic from a past LAURA procedure. BED MOBILITY/TRANSFERS Sit-stand: Min A Stand-sit: CGA x2 GAIT Assistive Device: FWW Weight bearing: Full Assist: CGA - Min A Distance: 15' Deviation: Slow pacing, cueing for FWW management, unable to extend B knees fully, unable to maintain erect posture. THEREX: Patient was instructed in LE strengthening program, completed in a seated position, to include: ankle pumps, LAQ, hip flexion and hip abduction. She requires assist with LAQ, hip flexion and abduction on R due to weakness and pain. ASSESSMENT: Patient tolerated session with complaint of increased fatigue and R hip pain. She continues to demonstrate limited activity tolerance and requires Min A with transfers and occasionally with gait training. She also continues to demonstrate global weakness and an inability to maintain an erect posture or full extension of B knees with gait training. PLAN: Continue with general conditioning and global strengthening for improved mobility and activity tolerance. Recommend ST SNF placement for ongoing PT intervention for safety and progression toward baseline level of function. TREATMENT CODE/TIME: 24 minutes; 56504, [id number] (13:05) (Additional 25 minutes spent counselling patient/participating in discharge planning discussion with Care Management and patient, at no charge.)
[2022-10-20 16:56] LABS: Source Nasal/Nares
[2022-10-20 17:31] LABS: COVID-19 PCR Negative (Negative)
[2022-10-20] MEDS: Ferrous Sulfate 325 MG TAB PO (21:07)
[2022-10-21 02:51] VITALS: BP 150/70; PULSE 62; RESP 17; TEMP 36.9; O2SAT 98
[2022-10-21] MEDS: Lactated Ringers 1,000 ML 125 ML IV (05:59)
[2022-10-21] MEDS: Heparin 5,000 UNITS/ML VIAL 5000 UNITS SC (06:03)
[2022-10-21 07:00] VITALS: PULSE 65
[2022-10-21 07:49] VITALS: BP 144/62; PULSE 88; RESP 18; TEMP 36.7; O2SAT 98
[2022-10-21] MEDS: Ferrous Sulfate 325 MG TAB PO (08:41)
[2022-10-21] MEDS: Multivitamin w/Minerals TAB 1 TAB PO (08:41)
[2022-10-21 09:40] LABS: Abs Immature Grans 0.04 10^3/uL (0.0-0.06); Absolute Basophil Count 0.03 10^3/uL (0.0-0.2); Absolute Eosinophil Count 0.18 10^3/uL (0.0-0.7); Absolute Lymphocyte Count 1.61 10^3/uL (1.2-3.4); Absolute Monocyte Count 0.84 10^3/uL (0.1-0.8); Absolute Neutrophil Count 5.34 10^3/uL (1.2-6.7); Basophils % 0.4; Eosinophils % 2.2; HCT 31.8 % (36.0-46.0); HGB 10.4 g/dL (11.2-15.7); Immature Grans % 0.5; MCH 30.2 pg (27.0-33.0); MCHC 32.7 % (32.0-36.0); MCV 92 fL (80-95); MPV 9.3 fL (8.0-11.0); Monocytes % 10.4; Neutrophils % 66.5; Platelet Count 247 10^3/uL (130-400); RBC 3.44 10^6/uL (3.93-5.22); RDW 12.2 % (11.7-14.6); RDW-SD 40.8 fL; WBC 8.04 10^3/uL (4.4-10.8)
[2022-10-21 09:56] LABS: Anion Gap 8.4 mmol/L (3-11); BUN 26 mg/dL (7-18); CO2 24.6 mmol/L (21.0-32.0); CREATININE 1.8 mg/dL (0.55-1.02); Calcium 8.9 mg/dL (8.5-10.1); Chloride 107 mmol/L (98-107); Creatine Kinase 355 U/L (26-192); Estimated GFR 28.31 (mL/min/1.73m2); Glucose 97 mg/dL (74-106); Magnesium 1.8 mg/dL (1.8-2.4); Potassium 3.6 mmol/L (3.5-5.1); Sodium 140 mmol/L (136-145)
--- NOTE | 2022-10-21 10:12 | OT.INNT ---
Occupational Therapy Notes 10/21/22 OT went in to see pt who states that she would like to hold because she is tired. Rebecca Roberts, OTR/L
[2022-10-21 10:35] VITALS: PULSE 65
--- NOTE | 2022-10-21 10:35 | PTTR_ITS ---
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 She would also like to make sure the crickets and birds are fed. OBJECTIVE: [] BED MOBILITY/TRANSFERS Sit-stand: CGA from commode/ min A out of recliner Stand-sit:SBA GAIT Assistive Device: FWW Weight bearing: full Assist: SBA/CGA Distance: 10'+ 25' Deviation: slow cata with shortened stride length. Toileted: Pt incontinent of urine on the way to commode. Assistance required in cleaning her up. THEREX: performed global LE strengthening while sitting in recliner. AP, LAQ, hip flex and abd as well as modified SLR in reclined positioned. All ex performed x 10 reps. Assistance needed for right LE occasionally. ASSESSMENT: tolerated session well. Slow moving but this seems more from her being easily distracted. No pain complaints offered. Noted moments of being confused. She was able to e redirected. PLAN: d/c to SNF in [place], daughter to transport. TREATMENT CODE/TIME: 30 min. [id number], [id number]
--- NOTE | 2022-10-21 10:36 | DSE_ITS ---
Date of service: 10/21/22 Time of Service: 10:36 DS: Diagnosis Discharge Diagnosis (1) Rhabdomyolysis: Status: Acute (2) Acute kidney injury (nontraumatic): Status: Acute (3) Syncope: Status: Suspected (4) Anemia: Status: Acute Asessment and Plan: multifactorial. heme negative, dilutional, with evidence of borderline folate and B12 deficiency. (5) Chronic kidney disease: Status: Chronic (6) HTN (hypertension): (7) Hypothyroidism (acquired): Discharge Plan Disposition Patient Disposition: [facility](SNF) Condition: Stable Discharge Details Reason For Visit: JAYA,Dehydration,Rhabdomyolysis Admit Date/Time: 10/18/22 16:36 Admit Provider: Ronald Hsu Attending Provider: Ronald Hsu Primary Care Provider: Palak Casas [facility] Hospital Course: Ms Brice is a 77 year old female with PMHx of hypertension, hypothyroidism, CKD (stage unknown, baseline Cr of 1.7), obesity with BMI of 30.1 kg/m2, who was admitted to [facility] hospitalist service on 10/18/22 for rhabdomyolysis and JAYA after being found down on the bathroom floor for an unclear amount of time. Her JAYA due to rhabdomyolysis was treated with IV hydration, and the patient's CPK improved from 2262 to 355. EEG was obtained to rule out a seizure and was negative for epileptiform discharges during the study. While the patient denies loss of consciousness, syncope remains a possibility. She had NSR on the telemetry monitoring here. She had an echocardiogram which revealed a normal LVEF (55-60%), normal wall motion, normal RV size and systolic function. The left atrium was mildly to moderately dilated, and the RA was normal. There was evidence of aortic valve sclerosis and trace regurgitation. There was evidence of mild to moderate mitral regurgitation and trace tricuspid regurgitation. Because the patient did have evidence of dilated LA, outpatient extended cardiac monitoring should be considered. Her kidney function is back to her baseline. We did not her to be anemic, which we feel was largely dilutional on this admission. Her hemoccults were negative and iron studies not c/w iron deficiency. She did have evidence of borderline B12 and folate deficiencies, which were repleted. She has been workign with PT and OT who recommend SNF level of care for subacute rehab on discharge. She was accepted at [facility] in [place] and is medically stable for discharge. Care for patient as well as completion of her discharge summary on day of discharge took 45 minutes. Home Meds and New Rx's Prescriptions: New One Daily Multi-Vit w-Mineral 4.5 mg iron Tablet 1 tab PO DAILY Qty: 0 0RF folic acid 1 mg tablet 1 mg PO DAILY Qty: 30 0RF mecobalamin (vitamin B12) 1,000 mcg lozenge 1,000 mcg PO DAILY Qty: 60 0RF Rx Instructions: allow to dissolve in mouth OR may chew lightly before swallowing Continued levothyroxine [Synthroid] 25 MCG tablet 25 mcg PO DAILY Label Comments: pt. does not remember lisinopril 10 MG tablet 10 mg PO DAILY Label Comments: pt. states she does not remember Discharge Instructions Instructions: Acute Kidney Injury (DC), Syncope (DC), Rhabdomyolysis (DC), Fall Prevention (DC) Additional Instructions: Return to the hospital with any changes in mental status, falls, fainting, fever, bleeding, chest pain, or shortness of breath. Stand Alone Forms: Nursing Discharge Form Activity:: Activity as Tolerated Equipment/Supplies:: No Equipment Needed Diet:: heart healthy Discharge Orders Discharge Orders: Discharge Order (Routine); Ordered 10/21/22 Ordered By: Cassi Ambrosio DS: Summary Time Spent with Patient providing and/or coordinating discharge services: Greater than 30 minutes Status at Discharge Functional status at discharge: uses cane/walker Overall status at discharge: patient is progressing back to baseline Mental Status: mental status grossly normal Speech and Movement: speech and movement normal Mood: congruent mood Affect: normal affect Exam Narrative Exam Narrative: General: Pleasent elderly female, SQUAXIN, A&Ox2 (does not know the year), NAD HEENT: EOMI, MMM Heart: RRR, no m/r/g Lungs: CTAB Abdomen: soft, nontender, nondistended Extremities: trace edema BLEs Psych Mental Status: mental status grossly normal Speech and Movement: speech and movement normal Mood: congruent mood Affect: normal affect DS: Data Vitals/I&O Vitals and I&O: Vital Signs Temperature 36.7 C 10/21/22 07:49 Temperature Source Tympanic 10/21/22 07:49 Pulse 88 10/21/22 07:49 Pulse Rhythm Regular 10/21/22 02:39 Pulse 105 H 10/18/22 17:16 Respiratory Rate 18 10/21/22 07:49 Respiratory Effort 10/21/22 02:39 Respiratory Depth Normal 10/21/22 02:39 Respiratory Pattern Normal 10/21/22 02:39 Blood Pressure 144/62 H 10/21/22 07:49 Blood Pressure Mean 73 10/18/22 17:16 Blood Pressure Position Sitting 10/18/22 15:27 Pulse Oximetry 98 10/21/22 07:49 Oxygen Delivery Method Room Air 10/21/22 07:49 Oxygen Flow Rate 0 10/21/22 07:49 Pain Level 0 10/21/22 02:51 Comment 10/18/22 23:38 Intake & Output 10/20/22 10/20/22 10/21/22 11:59 23:59 11:59 Intake Total 1022.083 / 2202.083 1180 / 2202.083 1120 / 1120 Output Total 900 / 1425 325 / 1425 1200 / 1200 Balance 122.083 / 777.083 855 / 777.083 -80 / -80 Weight 77.1 kg 77 kg Intake: IV 542.083 / 2990.530 5158 / 6360.941 6355 / 1000 Oral 480 / 560 80 / 560 120 / 120 Output: Urine 900 / 1425 325 / 1425 1200 / 1200 Other: Urine Color Yellow Yellow Yellow Urine Appearance Clear Clear Clear Comment perales output Verbal order of Morenita Ovalle [employer] [employer]INE[employer] perales output. Stool Occult Blood Negative Stool Size Moderate Stool Characteristics Soft Formed Voiding Methods Bedside Commode Bedside Commode Diaper Incontinent Data Completed and Pending Completed studies during hospitalization [Text1]: CT head/C-spine w/o contrast 10/18/22: No acute intracranial findings on this noninfused CT scan of the brain. No evidence of cervical spine fracture, malalignment, nor acute compromise of the cervical spinal canal. Echo 10/19/22: Normal left ventricular wall thickness and chamber size.? Estimated ejection fraction is 55 to 60%.? Wall motion is normal Normal right ventricular size and systolic function The left atrium is mildly to moderately dilated.? Right atrial size is normal The aortic valve is sclerotic and trileaflet with trace regurgitation.? No aortic stenosis Normal mitral valve with mild to moderate regurgitation Normal tricuspid valve with trace regurgitation.? Right ventricular systolic pressure could not be estimated Mildly dilated ascending aorta 3.45 cm EEG: This EEG is normal during the awake state as well as during photic stimulation.? No focal regions of cerebral dysfunction or epileptiform activity was present. No sleep was recorded during the study which reduces the sensitivity of the exam. If seizure remains a part of the differential, consider a repeat sleep-deprived EEG or overnight ambulatory EEG.? Epilepsy remains a clinical diagnosis and a normal EEG does not rule out epilepsy.? Clinical correlation is advised. Labs on day of discharge: Labs from last 24 hours 10/21/22 10/21/22 10/20/22 09:30 09:30 16:45 WBC 8.04 RBC 3.44 L Hgb 10.4 L Hct 31.8 L MCV 92 MCH 30.2 MCHC 32.7 RDW 12.2 Plt Count 247 MPV 9.3 Immature Gran % 0.5 Neutrophils % 66.5 Lymphocytes % 20.0 Monocytes % 10.4 Eosinophils % 2.2 Basophils % 0.4 Nucleated RBC % 0.0 Absolute Neutrophils 5.34 Absolute Lymphocytes 1.61 Absolute Monocytes 0.84 H Absolute Eosinophils 0.18 Absolute Basophils 0.03 Sodium 140 Potassium 3.6 Chloride 107 Carbon Dioxide 24.6 Anion Gap 8.4 BUN 26 H Creatinine 1.8 H Est GFR (CKD-EPI 2020) 28.31 Glucose 97 Calcium 8.9 Magnesium 1.8 Creatine Kinase 355 H COVID-19 Source Nasal/Nares SARS-CoV-2 (PCR) Negative PFSH All Active Problems (Updated 10/21/22 @ 10:40 by Cassi Ambrosio MD) Anemia (Acute) Discharge planning issues (Acute) Chronic kidney disease (Chronic) Acute kidney injury (nontraumatic) (Acute) Rhabdomyolysis (Acute) Medical History (Updated 10/21/22 @ 10:40 by Cassi Ambrosio MD) HTN (hypertension) Hypothyroidism (acquired) Incontinence Neoplasm of endometrium Surgical History Colonoscopy - MAC (10/09/17) Vaginal hysterectomy Social History Smoking/Tobacco Use Status: Never Smoking risk assessment performed?: Yes Alcohol Intake: never Drug use: Never Substance use type: does not use Do you feel safe at home: Yes Do you feel safe in your relationship?: Yes
--- NOTE | 2022-10-21 11:17 | PDOC.CMDIS ---
- If Service Date Differs Date of service: 10/21/22 Time of Service: 11:17 Care Management Discharge Reason for Hospitalization: Syncope, Rhabdomyolysis, JAYA Discharge Plan: Madison is discharged to [facility] [place] [facility]. Dania is driven via private vehilce with daughter Bong. New RX's are printed. Pt will follow up with facility and community providers. Dania is encouraged to return to the hospital with any changes in mental status, falls, fainting, fever, bleeding, chest pain, or shortness of breath etc. Bong is planning on helping Dania establish care with a PCP local to [place]. Patient/Family Education Needs: Review discharge instructions, limitations, medications and plan to follow up with facility and community providers. Discuss ask me three and goals of self care. Services Needed at Discharge: Snf Facility ([facility] [place] [facility] [place]
== END 2022-10-21 11:19 | disposition skilled nursing facility (03) | DRG 558 ==
LOC: ER 16:52 → MS 17:28
PROVIDERS: Internal Medicine; Nurse Practitioner Acute Care; Admitting Provider Internal Medicine; Emergency Provider Student in an Organized Health Care Education/Training Program; PCP Nurse Practitioner Family; Visit Provider Internal Medicine
DX: M62.82 Rhabdomyolysis (principal); N17.9 Acute kidney failure, unspecified; R55 Syncope and collapse; N18.9 Chronic kidney disease, unspecified; I12.9 Hypertensive chronic kidney disease with stage 1 through stage 4 chronic kidney disease, or unspecified chronic kidney disease; R53.1 Weakness; E03.9 Hypothyroidism, unspecified; R32 Unspecified urinary incontinence; D64.9 Anemia, unspecified; E86.0 Dehydration; E53.8 Deficiency of other specified B group vitamins
CPT/HCPCS: 36415; 36416; 51702; 80048; 80053; 82550; 82962; 83690; 84145; 87635; 93005; 93306; 95816; 96360; 96361; 97110; 97162; 97165; 97530; 99285; 70450; 72125; 81003; 81015; 82607; 82728; 82746; 83540; 83550; 83735; 84439; 84443; 84484; 85014; 85018; 85025; 93010; 99223; 99233; 99239; J1644; J3475